=== PATIENT | male | born 1950 | race Caucasian/White ===

== ENCOUNTER 2016-12-22 11:25 | Inpatient (IN) ==
--- NOTE | 2016-12-22 14:05 | Podiatry History & Physical ---
History of Present Illness Chief complaint: Foot ulcer with cellulitis HPI: Mr. Akbar is a 66 year old male, known diabetic with long history of anticoagulant therapy for history of DVT/ PE . Patient with multiple bilateral PE approximately 5 years ago was admitted to [facility] and was told at that time he will need to take anticoagulant therapy for the remainder of his life. He presents with a diabetic foot ulcer which is chronic came acute over the last 5-7 days. Patient recently lost his mother on December 11. He lost his [id number] in July of this year. Patient's been under great deal of stress. noticed ulceration last 24 hours where he presented to [facility] ED was placed on clindamycin and returned home. Patient has had malaise fatigue chills over the last 24-48 hours. He presents today with significant edema and cellulitis of his right foot with a penetrating ulceration on the plantar aspect with a sinus tract approximately 3 cm from the center of the wound distally toward the great toe at the 6 clock position. There is no foul odor there is a seropurulent drainage. Patient will likely need to be incised and drained and debrided accordingly once he is medically optimized and we can bridge him off his Coumadin onto Lovenox per recommendations of internal medicine/hospitalist service. I have consulted infectious disease for management of this infection. He will be evaluated for possible osteomyelitis. Present x-rays do not reveal any active osteo. All Systems Reviewed: A 10-system review of systems was performed and is negative for pertinent findings except as documented above in the HPI. Past Med Surg Social Fam HX - Past Medical History Medical history: cancer, DVT, diabetes, hyperlipidemia, hypertension, renal disease, thyroid disease Psychiatric history: depression - Social History Smoking Status: Never smoker Smokeless Tobacco Status: No Alcohol use: none Drug use: none Medications and Allergies Amlodipine Besylate 10 mg PO DAILY 12/21/16 [History] Atenolol 100 mg PO DAILY 12/21/16 [History] Cholecalciferol (Vitamin D3) [Vitamin D] 2,000 unit PO DAILY 12/21/16 [History] Clindamycin HCl 300 mg PO Q6H #40 capsule 12/21/16 [Rx] Gabapentin [Neurontin] 400 mg PO TID 12/21/16 [History] Insulin Glargine,Hum.rec.anlog [Lantus Solostar] 30 unit SQ HS 12/21/16 [History ] Insulin LISPRO [Humalog Kwikpen U-100] 14 unit SQ TID 12/21/16 [History] Levothyroxine Sodium [Tirosint] 100 mcg PO QAM 12/21/16 [History] Lovastatin [Mevacor] 20 mg PO HS 12/21/16 [History] OxyCODONE/APAP 10/325 [Percocet 10/325 MG] 1 tab PO BID PRN 12/21/16 [History] Tizanidine HCl [Zanaflex] 4 mg PO TID 12/21/16 [History] Warfarin Sodium 5 mg PO SUTUTHSA 12/21/16 [History] hydroCHLOROthiazide [Hydrochlorothiazide] 25 mg PO DAILY 12/21/16 [History] Warfarin [Coumadin] 2.5 mg PO MOWEFR 12/22/16 [History] Allergies Penicillins Allergy (Verified 12/21/16 22:04) Hives Physical Exam - Constitutional Vitals: Temp Pulse Resp BP Pulse Ox 98.1 F 62 14 132/67 99 12/22/16 12:51 12/22/16 12:51 12/22/16 12:51 12/22/16 12:51 12/22/16 12:51 General appearance: average body habitus, cooperative - Expanded Lower Extremities Exam Foot/Toe exam: Present: deformity (Musculoskeletal: 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 DTRs Achilles and patellar equal and symmetrical 0/4. Babinski is absent clonus is negative. No spasticity no rigidity no flaccidity of either lower extremity.) Gait: Present: antalgic - Skin Additional comments: I observed an ulceration approximately 1 cm in length and 0.7 cm in width and 0.8 cm in depth with sinus tract at least 3 cm emanating from the center of the wound distally toward the great toe plantar aspect of the first MTPJ right foot. We see surrounding and ascending cellulitis with lymphangitis no odor no active purulent spontaneous drainage. There is serous and was drainage within the wound itself. Results - Labs Labs: All other labs normal. - Diagnostic results Ankle/Foot x-ray: image reviewed (MRI pending) Assessment and Plan (1) Foot ulcer with fat layer exposed Current visit: Yes Status: Acute Assessment: #1 diabetic foot ulcer with sinus tract plantar right foot first MTPJ with associated spreading cellulitis of the right foot #2 diabetes with neuropathy #3 anticoagulant status #4 history of multiple PEs Plan: #1 admit for intravenous antibiotics per infectious disease service #2 likely will need a formal incision and drainage and debridement of all necrotic tissue placement of wound VAC once patient is medically optimized and bridged from Coumadin to anticoagulants per medicine service #3 request consultation from hospitalist service for management of diabetes and anticoagulation Qualifiers: Laterality: right Qualified Code(s): L97.512 - Non-pressure chronic ulcer of other part of right foot with fat layer exposed
--- NOTE | 2016-12-22 14:21 | Infectious Disease Consult ---
Date of Encounter: 12/22/16 Time of Encounter: 14:20 Assessment and Plan (1) Diabetic foot ulcer Status: Acute Assessment and plan: Edema of his right foot with a penetrating ulceration on the plantar aspect with a sinus tract approximately 3 cm from the center of the wound distally toward the great toe. Surrounding erythema, no proximal streaking, no foul odor , minimal purulent drainage on dressing. Possible ostemyelitis with elevated CRP 155, ESR 41. Since admission he has not met SIRS criteria. X-ray of the right foot revealed chronic deformity of the first and second toes , with no radiographic evidence of osteomyelitis. MRI right foot is pending. Blood cultures were collected 12/31/16 and are pending. Wound cultures are ordered. Recommendations: Patient will need incision and debridement per podiatry. Need to obtain deep wound cultures. Will hold antibiotics at this time and await deep wound cultures. Patient is at very high risk for developing KENNETH with vancomycin administration given CKD stage III and current Cr 2.60 He currently does not meet sepsis criteria. If patient develops a Temp > 100.9F , Heart rate > 90, Respiratory rate > 20, or WBC > 12,000, will start Vancomycin and Cefepime. Will continue to monitor closely. Qualifiers: Diabetic foot ulcer location: toe Diabetes mellitus type: type 2 Laterality: right Non-pressure ulcer stage: with fat layer exposed Qualified Code(s): E11.621 - Type 2 diabetes mellitus with foot ulcer; L97.512 - Non-pressure chronic ulcer of other part of right foot with fat layer exposed (2) CKD (chronic kidney disease) stage 3, GFR 30-59 ml/min Status: Acute Assessment and plan: Recommend IV hydration. Avoid nephrotoxins. (3) Insulin dependent diabetes mellitus Status: Acute Assessment and plan: Management per internal medicine team (4) History of pulmonary embolism Status: Acute Assessment and plan: Hold Coumadin at this time. Patient may need I&D of right foot ulcer if condition worsens Infectious Disease HPI - Data of Consult Requesting Physician: Niels Castro, Primary Care Provider: Richard Driver MD - Consult Narrative Reason for consult: Diabetic foot ulcer History of present illness: Mr. Akbar is a 66 year old male that was admitted on 12/22/16 for right diabetic foot ulcer. Infectious disease is consulted on 12/22/16 for right diabetic foot ulcer Mr. Akbar is a 66 year old male with a PMH significant for diabetes, peripheral neuropathy, pulmonary embolism currently on Coumadin, and CKD stage III who was evaluated at [facility] ER last night due to chills, and rigors. He reported noticing a ulcer on the base of his right great toe 5 days ago that gradually became red and swollen. Labs revealed WBC 11.4, CRP 155 , ESR 41, BUN 32, creatinine 2.79, and glucose 286. Patient was instructed to follow up with Dr. Castro. Patient was subsequently admitted for planned incision and drainage after evalauted by Dr. Castro this AM. Since admission he has not met SIRS criteria. X-ray of the right foot revealed chronic deformity of the first and second toes , with no radiographic evidence of osteomyelitis. MRI right foot is pending. Blood cultures were collected 12/31/16 and are pending. Wound cultures are ordered. Other consultants include internal medicine for inpatient management of diabetes. Today the patient complains of redness, swelling, and denies pain at this time. CC: Niels Castro, Past Med Surg Social Fam HX - Past Medical History Medical history: cancer (Melanoma on back), DVT, diabetes, hyperlipidemia, hypertension, renal disease (CTD stage III), thyroid disease (Hyperthyroidism) Psychiatric history: depression - Past Surgical History Surgical History: other (Right foot I&D Melanoma resection from back) - Social History Smoking Status: Never smoker Smokeless Tobacco Status: No Alcohol use: none Drug use: none - Family History Mother Living Status: Hx Family Cardiac Disorders: Yes Father Living Status: Hx Family Cardiac Disorders: Yes Hx Family Endocrine Disorder: Yes (diabetes) Infectious Disease-CN:Meds Amlodipine Besylate 10 mg PO DAILY 12/21/16 [History] Atenolol 100 mg PO DAILY 12/21/16 [History] Cholecalciferol (Vitamin D3) [Vitamin D] 2,000 unit PO DAILY 12/21/16 [History] Clindamycin HCl 300 mg PO Q6H #40 capsule 12/21/16 [Rx] Gabapentin [Neurontin] 400 mg PO TID 12/21/16 [History] Insulin Glargine,Hum.rec.anlog [Lantus Solostar] 30 unit SQ HS 12/21/16 [History ] Insulin LISPRO [Humalog Kwikpen U-100] 14 unit SQ TID 12/21/16 [History] Levothyroxine Sodium [Tirosint] 100 mcg PO QAM 12/21/16 [History] Lovastatin [Mevacor] 20 mg PO HS 12/21/16 [History] OxyCODONE/APAP 10/325 [Percocet 10/325 MG] 1 tab PO BID PRN 12/21/16 [History] Tizanidine HCl [Zanaflex] 4 mg PO TID 12/21/16 [History] Warfarin Sodium 5 mg PO SUTUTHSA 12/21/16 [History] hydroCHLOROthiazide [Hydrochlorothiazide] 25 mg PO DAILY 12/21/16 [History] Warfarin [Coumadin] 2.5 mg PO MOWEFR 12/22/16 [History] Allergies Penicillins Allergy (Verified 12/21/16 22:04) Hives Review of systems: Travel: denies recent travel Animal exposure: Patient has dog at home but denies dog bite Sick contacts: Denies. Diet: denies ingestion of undercooked or raw meats. Dental: denies recent dental procedures - Constitutional Constitutional: Present: chills, fever(s). Absent: fatigue, weakness, weight gain, weight loss - EENT Eyes: Absent: change in vision Nose, mouth and throat: Absent: nasal congestion - Cardiovascular Cardiovascular: Present: pedal edema (Right lower extremity). Absent: chest pain, palpitations, rapid heart rate - Respiratory Respiratory: Absent: cough, chest congestion, excessive phlegm production - Gastrointestinal Gastrointestinal: Absent: abdominal pain, bloating, diarrhea, nausea, vomiting - Genitourinary Additional comments: Denies dysuria, frequency/urgency - Musculoskeletal Musculoskeletal: Present: limited range of motion (Right foot), numbness - Integumentary Integumentary: Present: erythema, lesions, skin ulcer, swelling, wounds. Absent : change in hair, change in nails - Neurological Neurological: Present: numbness, paresthesias. Absent: confusion, weakness - Endocrine Endocrine: Absent: cold intolerance, heat intolerance, palpitations, polydipsia , polyphagia, polyuria - Hematologic/Lymphatic Hematologic/Lymphatic: Absent: easy bleeding, lymphadenopathy Exam - Constitutional Vitals: Temp Pulse Resp BP Pulse Ox 98.1 F 62 14 132/67 99 12/22/16 12:51 12/22/16 12:51 12/22/16 12:51 12/22/16 12:51 12/22/16 12:51 General appearance: average body habitus, cooperative, no acute distress, no febrile - Head Head exam: Present: atraumatic, normal inspection, normocephalic - Eye Eye exam: Present: PERRL, conjuntiva pink - ENT ENT exam: Present: mucous membranes moist, normal oropharynx - Neck Neck exam: Present: lymphadenopathy, normal inspection. Absent: meningismus, tenderness, thyromegaly - Respiratory Respiratory exam: Present: CTAB. Absent: decreased breath sounds, rhonchi, wheezes - Cardiovascular Cardiovascular exam: Present: RRR, +S1, +S2. Absent: diastolic murmur, systolic murmur - GI/Abdominal GI/Abdominal exam: Present: normal bowel sounds, soft. Absent: distended, guarding, rebound, rigid, tenderness - Extremities Exam Extremities exam: Present: full ROM. Absent: pedal edema, tenderness Additional comments: Edema of his right foot with a penetrating ulceration on the plantar aspect with a sinus tract approximately 3 cm from the center of the wound distally toward the great toe. Surrounding erythema, no proximal streaking, no foul odor , minimal purulent drainage on dressing. - Neurological Exam Neurological exam: Present: alert, oriented X3. Absent: altered Additional comments: decreased sensation bilateral lower extremities - Skin Additional comments: Edema of his right foot with a penetrating ulceration on the plantar aspect with a sinus tract approximately 3 cm from the center of the wound distally toward the great toe. Surrounding erythema, no proximal streaking, no foul odor , minimal purulent drainage on dressing. Infectious Disease CN: Results - Labs CBC & Chem 7: 12/23/16 05:38 12/23/16 05:38 Consult Discharge Plan - Plan Referrals: Richard Driver MD [Primary Care Provider] - - Attending Attestation I examined this patient and my medical decision-making was reviewed with the Resident Physician. I agree with the documented findings, disposition and treatment plan as described except to the extent set forth below. This is an addendum to original report dictated by resident physician. Please refer to the residents note for full details. Patient is a 66-year-old gentleman who has extensive past medical history including diabetes mellitus with diabetic nephropathy stage III and history of bilateral PEs in the past about 6 years ago has been having this diabetic foot ulcer on the right side for quite some time. Patient was evaluated by Dr. Castro noted to the infection is deep and did some deep tissue cultures in the office and send the patient for admission and possible starting IV antibiotics. Patient also has an MRI ordered, blood cultures and routine labs. Patients labs reveal ESR in the 40s and a CRP in the 150 range. Rest of the workup is still pending. Currently patient has no surgical criteria and appears comfortable. The wound doesnt appear deep but there is no lesli pus coming out and is not foul-smelling. Patient was started on broad-spectrum antibiotics. I will hold all antibiotics to see what the MRI shows and if there is a concern for osteomyelitis versus other. Also to improve the yield of cultures if the patient that having his surgery. Meanwhile I will monitor closely if clinically patient changes well start empiric vancomycin and cefepime. Await MRI results, we will cultures, await wound cultures.
[2016-12-22 15:21] LABS: Basophils % 0.3 %; Eosinophils # 0.4 K/mcL (0.0-0.6); Eosinophils % 3.6 %; Hemoglobin 11.7 g/dL (12.9-16.9); Immature Granulocytes % 0.3 % (0-4); Lymphocytes # 1.3 K/mcL (0.6-4.6); Lymphocytes % 12.5 %; Mean Corpuscular HGB Conc 33.4 g/dL (31.6-35.5); Mean Corpuscular Hemoglobin 28.2 pg (28.0-33.3); Mean Corpuscular Volume 84.3 fL (83.0-100.0); Mean Platelet Volume 11.5 fL (9.4-12.4); Monocytes # 0.7 K/mcL (0.0-1.3); Monocytes % 7.2 %; Neutrophils # 7.8 K/mcL (1.6-8.9); Platelet Count 156 K/mcL (140-400); Red Blood Count 4.15 M/mcL (4.19-5.50); Red Cell Distribution Width 12.9 % (11.5-14.5); Segmented Neutrophils % 76.1 %
[2016-12-22] MEDS ORDERED: D5% in Water 1,000 ML IVC PRN (15:25)
[2016-12-22] MEDS ORDERED: *HR* Dextrose 50 % in Water (Syg) 50 ML SYRINGE IVP PRN (15:25)
[2016-12-22] MEDS ORDERED: Dextrose Gel 15 GM PO PRN ×2 (15:25)
[2016-12-22] MEDS ORDERED: *HR* OxyCODONE/APAP 10/325 TABLET PO PRN (15:27)
[2016-12-22] MEDS ORDERED: *HR* Heparin 5,000 UNIT/ML VIAL IVP PRN ×2 (15:29)
--- NOTE | 2016-12-22 15:33 | Internal Medicine Consult Note ---
Date of Encounter: 12/22/16 Time of Encounter: 15:33 - Assessment and Plan (1) Diabetic foot ulcer Current Visit: Yes Status: Acute Assessment and plan: Patient admitted for planned I&D of diabetic foot ulcer and IV antibiotics for cellulitis. Management per infectious disease and orthopedic surgery. Qualifiers: Diabetic foot ulcer location: toe Diabetes mellitus type: type 2 Laterality: right Non-pressure ulcer stage: with fat layer exposed Qualified Code(s): E11.621 - Type 2 diabetes mellitus with foot ulcer; L97.512 - Non-pressure chronic ulcer of other part of right foot with fat layer exposed (2) Acute kidney injury superimposed on chronic kidney disease Current Visit: Yes Status: Acute Assessment and plan: Patient's BUN and creatinine elevated to 32 and 2.79, respectively. Creatinine is above previous baseline of ~ 2.2. Patient reporting poor appetite, and this is likely secondary to infection and poor oral intake. Will hold HCTZ and gently hydrate with 0.9NS at 100mL/hr, check chemistry daily. Will also get a UA. (3) Hypertension Current Visit: Yes Status: Acute Assessment and plan: Blood pressure has been controlled since arrival. Continue home dose of atenolol and amlodipine. Holding HCTZ due to KENNETH. Continue to monitor. Qualifiers: Hypertension type: essential hypertension Qualified Code(s): I10 - Essential (primary) hypertension (4) Anticoagulated on Coumadin Current Visit: Yes Status: Acute Assessment and plan: Patient is on coumadin for history of saddle embolus. Stat PT/INR/PTT ordered. Will hold coumadin in anticipation of surgery on . Heparin drip initiated to bridge anticoagulation. Check PT/INR/PTT per protocol. Will stop prior to surgery and plan to bridge back to coumadin after surgery. (5) Hypothyroid Current Visit: Yes Status: Acute Assessment and plan: Continue home dose of Synthroid. Qualifiers: Hypothyroidism type: unspecified Qualified Code(s): E03.9 - Hypothyroidism , unspecified (6) History of pulmonary embolism Current Visit: Yes Status: Acute Assessment and plan: Patient reports history of saddle pulmonary embolus 5 years ago. He is on lifelong anticoagulation with coumadin and follows with the anti-coagulation clinic here. We are holding coumadin in anticiaption of surgery and will bridge with heparin. Patient denies any chest pain, palpitations or shortness of breath. (7) Type 2 diabetes mellitus Current Visit: Yes Status: Acute Assessment and plan: Check Hgb A1c Diabetic diet Basal dose of insulin 26u HS (patient takes 30u HS at home) short acting insulin 8u TID with meals plus medium dose sliding scale correction ACHS. (patient takes 14u TID at home) hypoglycemic protocol. 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 Patient on heparin drip. Internal Medicine - CN: HPI - Data of Consult Patient: new to practice Consult date: 12/22/16 Requesting Physician: Niels Castro, - Consult Narrative Reason for consult: medical management of diabetes, anticoagulation History of present illness: Mr. Akbar is a 66 year old male with hypertension, hyperlipidemia, hypothyroid, chronic kidney disease stage III, type 2 diabetes, history of DVT and PE on Coumadin, chronic low back pain and right foot diabetic foot ulcer who was admitted for planned incision and drainage of the diabetic foot ulcer by Dr. Castro. We have been consulted for medical management of his diabetes and anticoagulation. Patient reports that he started having fevers, chills, poor appetite yesterday and decided to take a look at his chronic diabetic ulcer on his right foot, it looked worse, with swelling, redness. He presented to [place] ED yesterday, and was instructed to follow-up with Dr. Castro today. He did see Dr. Castro in an appointment this morning and was subsequently admitted for planned incision and drainage. Patient denies any chest pain, palpitations , shortness of breath. He denies any nausea, vomiting. Labs from yesterday indicate patient has KENNETH on his CKD with a creatinine of 2.79, BUN of 32. Patient's Coumadin will be need to be stopped and he will be bridged with heparin until his procedure planned for . On exam, patient alert and oriented, in no acute distress. Lungs are clear bilaterally to auscultation, heart had regular rate and rhythm. Nontender positive bowel sounds in all 4 quadrants. Right lower extremity with edema, erythema, and 1 cm x 1 cm ulcer to his medial plantar aspect just proximal to the great toe. Past Med Surg Social Fam HX - Past Medical History Medical history: cancer (Melanoma on back), DVT, diabetes, hyperlipidemia, hypertension, renal disease (CTD stage III), thyroid disease (Hyperthyroidism) Psychiatric history: depression - Past Surgical History Surgical History: other (Right foot I&D Melanoma resection from back) - Social History Smoking Status: Never smoker Smokeless Tobacco Status: No Alcohol use: none Drug use: none - Family History Mother Living Status: Hx Family Cardiac Disorders: Yes Father Living Status: Hx Family Cardiac Disorders: Yes Hx Family Endocrine Disorder: Yes (diabetes) - Constitutional Constitutional: anorexia, chills, fever(s) - EENT Eyes: no blurry vision, no change in vision - Cardiovascular Cardiovascular ROS IM: no chest pain, no dyspnea, no dyspnea on exertion, no lightheadedness, no palpitations - Respiratory Respiratory: no cough, no dyspnea, no excessive phlegm production - Gastrointestinal Gastrointestinal: no abdominal pain, no diarrhea, no nausea, no vomiting - Genitourinary Genitourinary ROS male: no dysuria - Musculoskeletal Musculoskeletal ROS IM: back pain (chronic), joint swelling (right foot), numbness (chronic BLE), tingling (chronic BLE) - Integumentary Integumentary IM: erythema (right foot), non-healing lesions (right plantar foot ) - Neurological Neurological ROS: no confusion, no dizziness Internal Medicine - CN: Meds Amlodipine Besylate 10 mg PO DAILY 12/21/16 [History] Atenolol 100 mg PO DAILY 12/21/16 [History] Cholecalciferol (Vitamin D3) [Vitamin D] 2,000 unit PO DAILY 12/21/16 [History] Clindamycin HCl 300 mg PO Q6H #40 capsule 12/21/16 [Rx] Gabapentin [Neurontin] 400 mg PO TID 12/21/16 [History] Insulin Glargine,Hum.rec.anlog [Lantus Solostar] 30 unit SQ HS 12/21/16 [History ] Insulin LISPRO [Humalog Kwikpen U-100] 14 unit SQ TID 12/21/16 [History] Levothyroxine Sodium [Tirosint] 100 mcg PO QAM 12/21/16 [History] Lovastatin [Mevacor] 20 mg PO HS 12/21/16 [History] OxyCODONE/APAP 10/325 [Percocet 10/325 MG] 1 tab PO BID PRN 12/21/16 [History] Tizanidine HCl [Zanaflex] 4 mg PO TID 12/21/16 [History] Warfarin Sodium 5 mg PO SUTUTHSA 12/21/16 [History] hydroCHLOROthiazide [Hydrochlorothiazide] 25 mg PO DAILY 12/21/16 [History] Warfarin [Coumadin] 2.5 mg PO MOWEFR 12/22/16 [History] Allergies Penicillins Allergy (Verified 12/21/16 22:04) Hives Internal Medicine - CN: Exam - Constitutional Vitals: Temp Pulse Resp BP Pulse Ox 98.1 F 62 14 132/67 99 12/22/16 12:51 12/22/16 12:51 12/22/16 12:51 12/22/16 12:51 12/22/16 12:51 General appearance IM: Present: A&O X 3, pleasant, no acute distress - Head Head exam: Present: atraumatic, normocephalic - Eye Eye exam: Present: PERRL, conjuntiva pink, sclera anicteric - Neck Neck exam general surgery: Present: full ROM, supple, trachea midline - Respiratory Respiratory exam: Present: CTAB. Absent: accessory muscle use, rales, rhonchi, wheezes - Cardiovascular Cardiovascular exam IM: Present: RRR, +S1, +S2. Absent: bradycardia, irregular rhythm, tachycardia - GI/Abdominal GI/Abdominal exam IM: Present: normal bowel sounds, soft, no peritoneal signs. Absent: tenderness - Extremities Exam Additional comments: 1cm x 1cm ulcer at plantar aspect of proximal metatarsal on right foot. surrounding erythema and edema. - Neurological Exam Neurological exam: Present: oriented X3. Absent: facial droop, speech deficit Internal Medicine - CN: Reslt - Labs CBC & Chem 7: 12/22/16 13:03 12/22/16 15:00 Labs: Short CBC 12/22/16 Range/Units 13:03 WBC 10.2 (4.3-11.1) K/mcL Hgb 11.7 L (12.9-16.9) g/dL Hct 35.0 L (37.5-50.1) % Plt Count 156 (140-400) K/mcL Neutrophils # 7.8 (1.6-8.9) K/mcL Consult Discharge Plan - Plan Referrals: Richard Driver MD [Primary Care Provider] -
[2016-12-22 15:34] LABS: Calcium 8.3 mg/dL (8.6-10.8)
[2016-12-22] MEDS ORDERED: Vancomycin 1,500 MG in D5% in Water 250 ML IVPB SCH ×2 (16:00→17:00)
[2016-12-22] MEDS ORDERED: Cefepime HCl 2,000 MG in D5% in Water (Mini-Bag+) 100 ML IVPB SCH (16:00)
[2016-12-22 16:23] LABS: Hematocrit 31.9 % (37.5-50.1); Hemoglobin 10.9 g/dL (12.9-16.9); Immature Platelets 8.4 % (1.1-6.1); Mean Corpuscular HGB Conc 34.2 g/dL (31.6-35.5); Mean Corpuscular Hemoglobin 28.8 pg (28.0-33.3); Mean Corpuscular Volume 84.4 fL (83.0-100.0); Mean Platelet Volume 11.8 fL (9.4-12.4); Red Blood Count 3.78 M/mcL (4.19-5.50)
[2016-12-22 16:28] LABS: INR 2.2; Prothrombin Time 24.8 Seconds (9.4-12.1)
[2016-12-22 16:31] LABS: Activated Partial Thrombo Time 33.6 Seconds (26.0-36.0)
[2016-12-22 17:02] LABS: Hemoglobin A1C 6.6 %
[2016-12-22] MEDS: 0.9 % Sodium Chloride 1,000 ML IVC SCH (17:17)
[2016-12-22] MEDS: Heparin 25,000 UNIT/500 ML D5W 25,000 UNIT/500 ML MLS IVC SCH (17:19)
[2016-12-22] MEDS: Insulin LISPRO 300 UNITS/3 ML VIAL SQ SCH ×3 (17:28→20:22)
[2016-12-22 18:53] LABS: Bilirubin,Urine Negative (Negative); Blood,Urine Negative (Negative); Clarity,Urine Clear (Clear); Color,Urine Yellow (Yellow); Glucose,Urine (UA) Normal (Normal); Ketones,Urine Negative (Negative); Leukocyte Esterase,Urine Negative (Negative); Nitrite,Urine Negative (Negative); Protein,Urine 30 mg/dL (Neg-Trace); Urobilinogen,Urine Normal (Normal)
[2016-12-22 18:57] LABS: Bacteria,Urine None Seen per hpf (None-Few); Hyaline Casts,Urine None Seen per lpf (None-Few); RBC,Urine 0-3 per hpf (0-3); Squamous Epithelial Cell,Urine Few per lpf (None-Few); WBC,Urine 0-3 per hpf (0-3)
[2016-12-22] MEDS: Gabapentin 400 MG CAPSULE PO SCH (20:54)
[2016-12-22] MEDS: tiZANidine 4 MG TABLET PO SCH (20:55)
[2016-12-22] MEDS: Insulin DETEMIR 100 UNIT/ML X5UNITS SQ SCH (21:23)
[2016-12-23] MEDS: 0.9 % Sodium Chloride 1,000 ML IVC SCH (03:34)
[2016-12-23 05:53] LABS: INR 2.1; Prothrombin Time 22.9 Seconds (9.4-12.1)
[2016-12-23 05:54] LABS: Basophils % 0.5 %; Eosinophils # 0.4 K/mcL (0.0-0.6); Eosinophils % 5.8 %; Hematocrit 31.9 % (37.5-50.1); Hemoglobin 11.1 g/dL (12.9-16.9); Immature Granulocytes % 0.5 % (0-4); Lymphocytes # 1.6 K/mcL (0.6-4.6); Lymphocytes % 20.7 %; Mean Corpuscular HGB Conc 34.8 g/dL (31.6-35.5); Mean Corpuscular Hemoglobin 29.1 pg (28.0-33.3); Mean Corpuscular Volume 83.5 fL (83.0-100.0); Mean Platelet Volume 11.7 fL (9.4-12.4); Monocytes # 0.5 K/mcL (0.0-1.3); Neutrophils # 4.9 K/mcL (1.6-8.9); Platelet Count 152 K/mcL (140-400); Red Blood Count 3.82 M/mcL (4.19-5.50); Red Cell Distribution Width 12.8 % (11.5-14.5); Segmented Neutrophils % 65.5 %
[2016-12-23 06:03] LABS: Calcium 7.9 mg/dL (8.6-10.8); Potassium 3.7 mEq/L (3.5-4.5)
[2016-12-23] MEDS: Cholecalciferol (D-3) 1,000 UNIT TABLET PO SCH (07:39)
[2016-12-23] MEDS: amLODIPine 5 MG TABLET PO SCH (07:39)
[2016-12-23] MEDS: Gabapentin 400 MG CAPSULE PO SCH ×3 (07:39→21:12)
[2016-12-23] MEDS: tiZANidine 4 MG TABLET PO SCH ×3 (07:39→21:11)
[2016-12-23] MEDS: Insulin LISPRO 300 UNITS/3 ML VIAL SQ SCH ×7 (07:40→21:12)
--- NOTE | 2016-12-23 08:17 | Infectious Disease Progress No ---
Date of Encounter: 12/23/16 Time of Encounter: 08:17 - Assessment and Plan (1) Diabetic foot ulcer Current Visit: Yes Status: Acute Edema of his right foot with a penetrating ulceration on the plantar aspect with a sinus tract approximately 3 cm from the center of the wound distally toward the great toe. Surrounding erythema, no proximal streaking, no foul odor , minimal purulent drainage on dressing. Elevated CRP 155, ESR 41. X-ray of the right foot revealed chronic deformity of the first and second toes , with no radiographic evidence of osteomyelitis. MRI right foot reveals chronic bony changes at the 1st and 2nd toes and evidence of cellulitis at the 1st metatarsophalangeal joint, with ulceration along the plantar aspect of foot. No focal fluid collections are found. No MR evidence of osteomyelitis. Blood cultures were collected 12/21/16 and show no growth to date Wound cultures collected 12/22/16 pending. Gram stain of right foot ulcer reveals moderate gram-positive cocci and many gram-negative rods. Recommendations: Patient will need incision and debridement per podiatry. Need to obtain deep wound cultures. Will hold antibiotics at this time and await deep wound cultures. Patient is at very high risk for developing KENNETH with vancomycin administration given CKD stage III and current creatinine elevation He does not meet sepsis criteria at this time. If patient develops a Temp > 100.9F, Heart rate > 90, Respiratory rate > 20, or WBC > 12,000, will start Vancomycin and Cefepime. Will continue to monitor closely. Qualifiers: Diabetic foot ulcer location: toe Diabetes mellitus type: type 2 Laterality: right Non-pressure ulcer stage: with fat layer exposed Qualified Code(s): E11.621 - Type 2 diabetes mellitus with foot ulcer; L97.512 - Non-pressure chronic ulcer of other part of right foot with fat layer exposed (2) CKD (chronic kidney disease) stage 3, GFR 30-59 ml/min Current Visit: Yes Status: Acute Recommend IV hydration. Avoid nephrotoxins. (3) Insulin dependent diabetes mellitus Current Visit: Yes Status: Acute Management per internal medicine team (4) History of pulmonary embolism Current Visit: Yes Status: Acute Hold Coumadin at this time. Continue heparin drip. Patient may need I&D of right foot ulcer if condition worsens - Subjective Interval history: Patient seen and examined. Acute events overnight. H he denies increased purulent drainage from right diabetic foot ulcer. He denies fevers, chills, chest pain, shortness of breath, abdominal pain, nausea, vomiting, diarrhea, or worsening leg edema Infect Dis PN-Objective Data - Labs CBC & Chem 7: 12/23/16 05:38 12/23/16 05:38 Labs: Laboratory Results - last 24 hr 12/22/16 12/22/16 12/22/16 13:03 15:00 15:00 WBC 10.2 RBC 4.15 L Hgb 11.7 L Hct 35.0 L MCV 84.3 MCH 28.2 MCHC 33.4 RDW 12.9 Plt Count 156 MPV 11.5 Immature Gran % 0.3 Seg Neutrophils % 76.1 Lymphocytes % 12.5 Monocytes % 7.2 Eosinophils % 3.6 Basophils % 0.3 Neutrophils # 7.8 Lymphocytes # 1.3 Monocytes # 0.7 Eosinophils # 0.4 Basophils # 0.0 Immature Plt Fraction ESR 41 H PT INR APTT Sodium 133 L Potassium 4.0 Chloride 101 Carbon Dioxide 25 BUN 35 H Creatinine 2.60 H Est GFR ( Amer) 30 L Est GFR (Non-Af Amer) 25 L BUN/Creatinine Ratio 13 Glucose 226 H POC Glucose Est Mean Plasma Glucose Hemoglobin A1c Calculated Osmolality 291 Calcium 8.3 L C-Reactive Protein 155 H Urine Color Urine Clarity Urine pH Ur Specific [place] Urine Protein Urine Glucose (UA) Urine Ketones Urine Blood Urine Nitrite Urine Bilirubin Urine Urobilinogen Ur Leukocyte Esterase Urine Microscopic RBC Urine Microscopic WBC Ur Squamous Epith Cells Urine Bacteria Hyaline Casts Ur Culture Indicated? 12/22/16 12/22/16 12/22/16 15:43 15:57 15:57 WBC RBC Hgb Hct MCV MCH MCHC RDW Plt Count MPV Immature Gran % Seg Neutrophils % Lymphocytes % Monocytes % Eosinophils % Basophils % Neutrophils # Lymphocytes # Monocytes # Eosinophils # Basophils # Immature Plt Fraction ESR PT 24.8 H INR 2.2 APTT 33.6 Sodium Potassium Chloride Carbon Dioxide BUN Creatinine Est GFR ( Amer) Est GFR (Non-Af Amer) BUN/Creatinine Ratio Glucose POC Glucose 229 H Est Mean Plasma Glucose 143 Hemoglobin A1c 6.6 H Calculated Osmolality Calcium C-Reactive Protein Urine Color Urine Clarity Urine pH Ur Specific [place] Urine Protein Urine Glucose (UA) Urine Ketones Urine Blood Urine Nitrite Urine Bilirubin Urine Urobilinogen Ur Leukocyte Esterase Urine Microscopic RBC Urine Microscopic WBC Ur Squamous Epith Cells Urine Bacteria Hyaline Casts Ur Culture Indicated? 12/22/16 12/22/16 12/22/16 15:57 17:06 18:47 WBC 10.1 RBC 3.78 L Hgb 10.9 L Hct 31.9 L MCV 84.4 MCH 28.8 MCHC 34.2 RDW 13.0 Plt Count 153 MPV 11.8 Immature Gran % Seg Neutrophils % Lymphocytes % Monocytes % Eosinophils % Basophils % Neutrophils # Lymphocytes # Monocytes # Eosinophils # Basophils # Immature Plt Fraction 8.4 H ESR PT INR APTT Sodium Potassium Chloride Carbon Dioxide BUN Creatinine Est GFR ( Amer) Est GFR (Non-Af Amer) BUN/Creatinine Ratio Glucose POC Glucose 174 H Est Mean Plasma Glucose Hemoglobin A1c Calculated Osmolality Calcium C-Reactive Protein Urine Color Yellow Urine Clarity Clear Urine pH 6.0 Ur Specific [place] 1.020 Urine Protein 30 H Urine Glucose (UA) Normal Urine Ketones Negative Urine Blood Negative Urine Nitrite Negative Urine Bilirubin Negative Urine Urobilinogen Normal Ur Leukocyte Esterase Negative Urine Microscopic RBC 0-3 Urine Microscopic WBC 0-3 Ur Squamous Epith Cells Few Urine Bacteria None Seen Hyaline Casts None Seen Ur Culture Indicated? NO 12/22/16 12/22/16 12/23/16 20:13 22:28 05:38 WBC 7.6 RBC 3.82 L Hgb 11.1 L Hct 31.9 L MCV 83.5 MCH 29.1 MCHC 34.8 RDW 12.8 Plt Count 152 MPV 11.7 Immature Gran % 0.5 Seg Neutrophils % 65.5 Lymphocytes % 20.7 Monocytes % 7.0 Eosinophils % 5.8 Basophils % 0.5 Neutrophils # 4.9 Lymphocytes # 1.6 Monocytes # 0.5 Eosinophils # 0.4 Basophils # 0.0 Immature Plt Fraction ESR PT INR APTT 65.3 H D Sodium Potassium Chloride Carbon Dioxide BUN Creatinine Est GFR ( Amer) Est GFR (Non-Af Amer) BUN/Creatinine Ratio Glucose POC Glucose 107 H Est Mean Plasma Glucose Hemoglobin A1c Calculated Osmolality Calcium C-Reactive Protein Urine Color Urine Clarity Urine pH Ur Specific [place] Urine Protein Urine Glucose (UA) Urine Ketones Urine Blood Urine Nitrite Urine Bilirubin Urine Urobilinogen Ur Leukocyte Esterase Urine Microscopic RBC Urine Microscopic WBC Ur Squamous Epith Cells Urine Bacteria Hyaline Casts Ur Culture Indicated? 12/23/16 12/23/16 12/23/16 05:38 05:38 05:38 WBC RBC Hgb Hct MCV MCH MCHC RDW Plt Count MPV Immature Gran % Seg Neutrophils % Lymphocytes % Monocytes % Eosinophils % Basophils % Neutrophils # Lymphocytes # Monocytes # Eosinophils # Basophils # Immature Plt Fraction ESR PT 22.9 H INR 2.1 APTT 80.3 H Sodium 135 L Potassium 3.7 Chloride 103 Carbon Dioxide 24 BUN 33 H Creatinine 2.21 H Est GFR ( Amer) 37 L Est GFR (Non-Af Amer) 30 L BUN/Creatinine Ratio 15 Glucose 127 H POC Glucose Est Mean Plasma Glucose Hemoglobin A1c Calculated Osmolality 289 Calcium 7.9 L C-Reactive Protein Urine Color Urine Clarity Urine pH Ur Specific [place] Urine Protein Urine Glucose (UA) Urine Ketones Urine Blood Urine Nitrite Urine Bilirubin Urine Urobilinogen Ur Leukocyte Esterase Urine Microscopic RBC Urine Microscopic WBC Ur Squamous Epith Cells Urine Bacteria Hyaline Casts Ur Culture Indicated? Cultures: Serology 12/22/16 Range/Units 18:47 Urine Color Yellow (Yellow) Urine Clarity Clear (Clear) Urine pH 6.0 (5.0-8.0) pH Units Ur Specific [place] 1.020 (1.010-1.025) Urine Protein 30 H (Neg-Trace) mg/dL Urine Glucose (UA) Normal (Normal) mg/dL Urine Ketones Negative (Negative) mg/dL Urine Blood Negative (Negative) Urine Nitrite Negative (Negative) Urine Bilirubin Negative (Negative) Urine Urobilinogen Normal (Normal) mg/dL Ur Leukocyte Esterase Negative (Negative) Urine Microscopic RBC 0-3 (0-3) per hpf Urine Microscopic WBC 0-3 (0-3) per hpf Ur Squamous Epith Cells Few (None-Few) per lpf Urine Bacteria None Seen (None-Few) per hpf Hyaline Casts None Seen (None-Few) per lpf Ur Culture Indicated? NO (NO) - Impressions Impressions Foot MRI 12/22/16 13:56 IMPRESSION: 1. Chronic bony changes at the 1st and 2nd ray as described above. No MR evidence of osteomyelitis. 2. Evidence of cellulitis at the 1st metatarsophalangeal joint, with ulceration along the plantar aspect of foot. No focal fluid collections are found. D/ / Shay Alston MD / Shay Alston MD Interpreting Provider: Shay Alston MD Exam - Constitutional Vitals: Temp Pulse Resp BP Pulse Ox 98.4 F 63 16 127/73 98 12/23/16 06:46 12/23/16 06:46 12/23/16 06:46 12/23/16 06:46 12/23/16 06:46 General appearance: cooperative, no acute distress, no febrile - Head Head exam: Present: atraumatic, normal inspection, normocephalic - Eye Eye exam: Present: PERRL, conjuntiva pink - ENT ENT exam: Present: mucous membranes moist, normal oropharynx - Neck Neck exam: Present: normal inspection. Absent: lymphadenopathy, tenderness, thyromegaly - Respiratory Respiratory exam: Present: CTAB. Absent: rales, rhonchi - Cardiovascular Cardiovascular exam: Present: RRR, +S1, +S2 - GI/Abdominal GI/Abdominal exam: Present: normal bowel sounds, soft. Absent: firm, guarding, rebound, rigid - Extremities Exam Extremities exam: Present: pedal edema. Absent: tenderness Additional comments: Edema of his right foot with a penetrating ulceration on the plantar aspect with a sinus tract approximately 3 cm from the center of the wound distally toward the great toe. Surrounding erythema, no proximal streaking, no foul odor , minimal purulent drainage on dressing. - Neurological Exam Neurological exam: Present: alert, oriented X3. Absent: altered - Psychiatric Psychiatric exam: Present: normal affect, normal mood - Skin Additional comments: Edema of his right foot with a penetrating ulceration on the plantar aspect with a sinus tract approximately 3 cm from the center of the wound distally toward the great toe. Surrounding erythema, no proximal streaking, no foul odor , minimal purulent drainage on dressing. Consult Discharge Plan - Plan Referrals: Richard Driver MD [Primary Care Provider] - - Attending Attestation I examined this patient and my medical decision-making was reviewed with the Resident Physician. I agree with the documented findings, disposition and treatment plan as described except to the extent set forth below.
--- NOTE | 2016-12-23 09:50 | Internal Med Progress Note ---
<HersonhugoNewton - Last Filed: 12/23/16 13:34> Date of Encounter: 12/23/16 Time of Encounter: 09:50 - Assessment and plan (1) Diabetic foot ulcer Current Visit: Yes Status: Acute Assessment and plan: Patient has diabetic ulcer on Plantar surface of R foot with surrounding cellulitis. Plan for I&D tomorrow. IV abx per IDs recs Qualifiers: Diabetic foot ulcer location: toe Diabetes mellitus type: type 2 Laterality: right Non-pressure ulcer stage: with fat layer exposed Qualified Code(s): E11.621 - Type 2 diabetes mellitus with foot ulcer; L97.512 - Non-pressure chronic ulcer of other part of right foot with fat layer exposed (2) Type 2 diabetes mellitus Current Visit: Yes Status: Acute Assessment and plan: Hgb A1C 6.6 Glucose 127 this AM Continue Diabetic diet Continue Basal dose of insulin 26u HS Continue short acting insulin 8u TID with meals plus medium dose sliding scale correction ACHS. Continue hypoglycemic protocol. Continue to monitor Qualifiers: Diabetes mellitus complication status: with skin complications Diabetes mellitus complication detail: with foot ulcer Diabetes mellitus halfway insulin use: with halfway use Qualified Code(s): E11.621 - Type 2 diabetes mellitus with foot ulcer; L97.509 - Non-pressure chronic ulcer of other part of unspecified foot with unspecified severity; Z79.4 - custodial (current) use of insulin (3) Anticoagulated on Coumadin Current Visit: Yes Status: Acute Assessment and plan: Patient on halfway Coumadin due to Saddle PE. Holding Coumadin Bridging with Heparin ggt Monitor INR will hold heparin prior to surgery and will bridge back to coumadin after surgery (4) History of pulmonary embolism Current Visit: Yes Status: Acute Assessment and plan: Pt on terminal clerk coumadin due to Hx of PE. Continue anticoagulation management as per above. (5) Acute kidney injury superimposed on chronic kidney disease Current Visit: Yes Status: Acute Assessment and plan: Pt has hx of CKD stage III. Baseline Cr. 2.2 Pt had elevated Cr. 2.79 on admission. Pt was given IV hydration HCTZ held. Pt Cr. Back to baseline this morning 2.21 Continue to hold HCTZ as pt's BP is well controlled. (6) Hypertension Current Visit: Yes Status: Acute Assessment and plan: Well controlled. Continue atenolol and amlodipine. continue to hold HCTZ Qualifiers: Hypertension type: essential hypertension Qualified Code(s): I10 - Essential (primary) hypertension (7) Hypothyroid Current Visit: Yes Status: Acute Assessment and plan: Continue Synthroid Qualifiers: Hypothyroidism type: unspecified Qualified Code(s): E03.9 - Hypothyroidism , unspecified - Subjective Interval history: Patient reports no complaints at this time. He is resting comfortably. He does not have any pain in his foot. He denies Fever, Chills, Nausea, or vomiting. - Constitutional Vitals: Temp Pulse Resp BP Pulse Ox 98.4 F 63 16 127/73 98 12/23/16 06:46 12/23/16 06:46 12/23/16 06:46 12/23/16 06:46 12/23/16 06:46 General appearance: Present: A&O X 3, pleasant, no acute distress - Eye Eye exam: Present: sclera anicteric - ENT ENT exam: Present: mucous membranes moist - Respiratory Respiratory exam: Present: CTAB. Absent: rales, rhonchi, wheezes - Cardiovascular Cardiovascular exam: Present: RRR, +S1, +S2. Absent: gallop, rubs, systolic murmur - GI/Abdominal GI/Abdominal exam: Present: normal bowel sounds, soft. Absent: tenderness - Extremities Exam Additional comments: Swelling, erythema, warmth surrounding Ulcer on plantar surface of R foot at big toe MTP joint - Neurological Exam Neurological exam: Present: alert, oriented X3. Absent: speech deficit - Psychiatric Psychiatric exam: Present: normal affect, normal mood - Skin Skin exam: Present: erythema, warm (R Foot) Internal Medicine: Result - Labs CBC & Chem 7: 12/23/16 05:38 12/23/16 05:38 Labs: Short CBC 12/22/16 12/22/16 12/23/16 Range/Units 13:03 15:57 05:38 WBC 10.2 10.1 7.6 (4.3-11.1) K/mcL Hgb 11.7 L 10.9 L 11.1 L (12.9-16.9) g/dL Hct 35.0 L 31.9 L 31.9 L (37.5-50.1) % Plt Count 156 153 152 (140-400) K/mcL Neutrophils # 7.8 4.9 (1.6-8.9) K/mcL BMP 12/22/16 12/23/16 15:00 05:38 Sodium 133 L 135 L Potassium 4.0 3.7 Chloride 101 103 Carbon Dioxide 25 24 BUN 35 H 33 H Creatinine 2.60 H 2.21 H Glucose 226 H 127 H Calcium 8.3 L 7.9 L Urine 12/22/16 Range/Units 18:47 Urine Color Yellow (Yellow) Urine Clarity Clear (Clear) Urine pH 6.0 (5.0-8.0) pH Units Ur Specific [place] 1.020 (1.010-1.025) Urine Protein 30 H (Neg-Trace) mg/dL Urine Glucose (UA) Normal (Normal) mg/dL - ABG Interpretation ABG results: PT/INR, D-dimer PT 22.9 Seconds (9.4-12.1) H 12/23/16 05:38 - Impressions Impressions Foot MRI 12/22/16 13:56 IMPRESSION: 1. Chronic bony changes at the 1st and 2nd ray as described above. No MR evidence of osteomyelitis. 2. Evidence of cellulitis at the 1st metatarsophalangeal joint, with ulceration along the plantar aspect of foot. No focal fluid collections are found. D/ / Shay Alston MD / Shay Alston MD Interpreting Provider: Shay Alston MD Consult Discharge Plan - Plan Referrals: Richard Driver MD [Primary Care Provider] - <Fabricio Archuleta - Last Filed: 12/23/16 18:37> Date of Encounter: 12/23/16 - Assessment and plan (1) Type 2 diabetes mellitus Current Visit: Yes Status: Acute Qualifiers: Diabetes mellitus complication status: with skin complications Diabetes mellitus complication detail: with foot ulcer Diabetes mellitus terminal clerk insulin use: with halfway use Qualified Code(s): E11.621 - Type 2 diabetes mellitus with foot ulcer; L97.509 - Non-pressure chronic ulcer of other part of unspecified foot with unspecified severity; Z79.4 - terminal clerk (current) use of insulin (2) Anticoagulated on Coumadin Current Visit: Yes Status: Acute (3) History of pulmonary embolism Current Visit: Yes Status: Acute (4) Hypertension Current Visit: Yes Status: Acute Qualifiers: Hypertension type: essential hypertension Qualified Code(s): I10 - Essential (primary) hypertension (5) Hypothyroid Current Visit: Yes Status: Acute Qualifiers: Hypothyroidism type: unspecified Qualified Code(s): E03.9 - Hypothyroidism , unspecified (6) Diabetic foot ulcer Current Visit: Yes Status: Acute Qualifiers: Diabetic foot ulcer location: toe Diabetes mellitus type: type 2 Laterality: right Non-pressure ulcer stage: with fat layer exposed Qualified Code(s): E11.621 - Type 2 diabetes mellitus with foot ulcer; L97.512 - Non-pressure chronic ulcer of other part of right foot with fat layer exposed - Constitutional Vitals: Temp Pulse Resp BP Pulse Ox 98.5 F 64 16 119/67 98 12/23/16 15:11 12/23/16 15:11 12/23/16 15:11 12/23/16 15:11 12/23/16 15:11 Internal Medicine: Result - Labs CBC & Chem 7: 12/23/16 05:38 12/23/16 05:38 Labs: Short CBC 12/23/16 Range/Units 05:38 WBC 7.6 (4.3-11.1) K/mcL Hgb 11.1 L (12.9-16.9) g/dL Hct 31.9 L (37.5-50.1) % Plt Count 152 (140-400) K/mcL Neutrophils # 4.9 (1.6-8.9) K/mcL BMP 12/23/16 05:38 Sodium 135 L Potassium 3.7 Chloride 103 Carbon Dioxide 24 BUN 33 H Creatinine 2.21 H Glucose 127 H Calcium 7.9 L Urine 12/22/16 Range/Units 18:47 Urine Color Yellow (Yellow) Urine Clarity Clear (Clear) Urine pH 6.0 (5.0-8.0) pH Units Ur Specific [place] 1.020 (1.010-1.025) Urine Protein 30 H (Neg-Trace) mg/dL Urine Glucose (UA) Normal (Normal) mg/dL - ABG Interpretation ABG results: PT/INR, D-dimer PT 22.9 Seconds (9.4-12.1) H 12/23/16 05:38 - Attending Attestation I examined this patient and my medical decision-making was reviewed with the Resident Physician on 12/23/16. I agree with the documented findings, disposition and treatment plan as described except to the extent set forth below. Mr. Akbar is currently admitted for diabetic foot ulcer. We are managing diabetes and anticoagulation. He remains moderate to high risk due to potential for bleeding, infection and blood sugar issues. Mr. Akbar is doing OK. He is to have surgery tomorrow. He is on heparin at this time. Blood sugars are fair. Exam Alert. Comfortable Mucus membranes moist Heart reg No wheeze Dressing intact I/P 1. DM 2. PE history on coumadin 2. Diabetic foot ulcer Further diagnoses and plan as above.
--- NOTE | 2016-12-23 10:59 | Podiatry Progress Note ---
Date of Encounter: 12/23/16 Time of Encounter: 10:56 - Assessment and Plan (1) Foot ulcer with fat layer exposed Current Visit: Yes Status: Acute Assessment: #1 diabetic foot ulcer with sinus tract plantar right foot first MTPJ with associated spreading cellulitis of the right foot #2 diabetes with neuropathy #3 anticoagulant status #4 history of multiple PEs Plan: #1 admit for intravenous antibiotics per infectious disease service #2 likely will need a formal incision and drainage and debridement of all necrotic tissue placement of wound VAC once patient is medically optimized and bridged from Coumadin to anticoagulants per medicine service #3 request consultation from hospitalist service for management of diabetes and anticoagulation Assessment: #1 diabetic foot infection with ulceration with sinus tract plantar first MTPJ right foot #2 Multiple comorbidities including anticoagulation presently on heparin Plan: #1 continue present management with anticipation of surgical intervention and debridement deep cultures tomorrow under local anesthetic and sedation Qualifiers: Laterality: right Qualified Code(s): L97.512 - Non-pressure chronic ulcer of other part of right foot with fat layer exposed Subjective Principal diagnosis: Diabetic foot ulcer with infection and cellulitis Interval history: Presently without any chest pain nausea vomiting fever chills. Gram stain complete. Cultures pending until antibiotics will be then started at that time anticipate surgical intervention tomorrow with deep cultures Objective - Vital Signs Vital Signs: Vital Signs Temp Pulse Resp BP Pulse Ox 12/23/16 10:16 98.2 F 58 16 117/62 97 12/23/16 06:46 98.4 F 63 16 127/73 98 12/23/16 04:05 98.2 F 59 16 125/65 97 12/23/16 00:48 99.1 F 12/22/16 22:59 99.5 F 56 16 116/63 96 12/22/16 20:15 98.9 F 65 18 130/68 97 12/22/16 15:41 98.8 F 56 16 145/75 97 12/22/16 12:51 98.1 F 62 14 132/67 99 Intake and Output 12/22/16 12/23/16 12/23/16 23:59 07:59 15:59 Intake Total 168 / 168 1210 / 1210 Output Total 350 / 350 900 / 900 Balance -182 / -182 310 / 310 Intake: IV Fluids 168 / 168 1210 / 1210 0.9 % Sodium Chloride 1, 1000 / 1000 000 ML @ 100 mls/hr IVC . Q10H SONDR[facility] Rx#:[id number] Heparin 25,000 UNIT/500 168 / 168 210 / 210 ML D5W 25,000 unit In 500 ml @ 14 UNIT/KG/HR 29.12 mls/hr IVC .[id number] SONDRA Rx#:[id number] Output: Urine 350 / 350 900 / 900 Other: Weight 104.38 kg Blood Glucose* 107 121 Patient Weight 12/23/16 23:59 Weight 104.38 kg - Exam Exam: Minimal resolution of his erythema and edema of the right foot wound. Incision: Present: swollen, inflamed - Lab Result Diagrams: 12/23/16 05:38 12/23/16 05:38 Labs: Abnormal lab results RBC 3.82 M/mcL (4.19-5.50) L 12/23/16 05:38 Hgb 11.1 g/dL (12.9-16.9) L 12/23/16 05:38 Hct 31.9 % (37.5-50.1) L 12/23/16 05:38 Immature Plt Fraction 8.4 % (1.1-6.1) H 12/22/16 15:57 ESR 41 mm/hr (0-10) H 12/22/16 15:00 PT 22.9 Seconds (9.4-12.1) H 12/23/16 05:38 APTT 80.3 Seconds (26.0-36.0) H 12/23/16 05:38 Sodium 135 mEq/L (136-145) L 12/23/16 05:38 BUN 33 mg/dL (8-26) H 12/23/16 05:38 Creatinine 2.21 mg/dL (0.72-1.25) H 12/23/16 05:38 Est GFR ( Amer) 37 (> 60) L 12/23/16 05:38 Est GFR (Non-Af Amer) 30 (> 60) L 12/23/16 05:38 Glucose 127 mg/dL (70-99) H 12/23/16 05:38 POC Glucose 107 (58-89) H 12/22/16 20:13 Hemoglobin A1c 6.6 % (-5.6) H 12/22/16 15:57 Calcium 7.9 mg/dL (8.6-10.8) L 12/23/16 05:38 C-Reactive Protein 155 mg/L (Less than 5) H 12/22/16 15:00 Urine Protein 30 mg/dL (Neg-Trace) H 12/22/16 18:47 Consult Discharge Plan - Plan Referrals: Richard Driver MD [Primary Care Provider] -
[2016-12-23] MEDS: Heparin 25,000 UNIT/500 ML D5W 25,000 UNIT/500 ML MLS IVC SCH (11:11)
[2016-12-23] MEDS: Multivit/Ca/Min/Fe/FA 1 TAB TABLET PO SCH (15:41)
--- NOTE | 2016-12-23 19:37 | Anesthesia Evaluation PreOp ---
Date of Encounter: 12/23/16 Time of Encounter: 19:10 - Past History Planned Operation: I&D Rt Foot Cardiac History: HTN, Hyperlipidemia Pulmonary History: Denies Any Significant HX, Other (Hx PE on lifelong anticoagulation) [employer] History: Denies Any Significant HX Other Medical History: Renal (Acute over Chronic Renal Disease), Diabetes Type II, Thyroid Anesthesia History: No Prior Anesthetic Complications Alcohol Use: none Drug use: none Medications and Allergies Amlodipine Besylate 10 mg PO DAILY 12/21/16 [History] Atenolol 100 mg PO DAILY 12/21/16 [History] Cholecalciferol (Vitamin D3) [Vitamin D] 2,000 unit PO DAILY 12/21/16 [History] Clindamycin HCl 300 mg PO Q6H #40 capsule 12/21/16 [Rx] Gabapentin [Neurontin] 400 mg PO TID 12/21/16 [History] Insulin Glargine,Hum.rec.anlog [Lantus Solostar] 30 unit SQ HS 12/21/16 [History ] Insulin LISPRO [Humalog Kwikpen U-100] 14 unit SQ TID 12/21/16 [History] Levothyroxine Sodium [Tirosint] 100 mcg PO QAM 12/21/16 [History] Lovastatin [Mevacor] 20 mg PO HS 12/21/16 [History] OxyCODONE/APAP 10/325 [Percocet 10/325 MG] 1 tab PO BID PRN 12/21/16 [History] Tizanidine HCl [Zanaflex] 4 mg PO TID 12/21/16 [History] Warfarin Sodium 5 mg PO SUTUTHSA 12/21/16 [History] hydroCHLOROthiazide [Hydrochlorothiazide] 25 mg PO DAILY 12/21/16 [History] Warfarin [Coumadin] 2.5 mg PO MOWEFR 12/22/16 [History] Allergies Penicillins Allergy (Verified 12/21/16 22:04) Hives - Meds/Allergy Pre-op Review Medications Reviewed: Yes Allergies Reviewed: Yes Beta Blockers on Current Med List: No Anesthesia Results - Labs 12/23/16 05:38 12/23/16 05:38 - Imaging EKG: pending Anesthesia Exam O2 Sat Weight 104.38 kg O2 Sat by Pulse Oximetry 97 O2 Sat by Pulse Oximetry 98 O2 Sat by Pulse Oximetry 97 O2 Sat by Pulse Oximetry 98 O2 Sat by Pulse Oximetry 97 O2 Sat by Pulse Oximetry 96 O2 Sat by Pulse Oximetry 97 Vital Signs Temp Pulse Resp BP Pulse Ox 98.1 F 62 14 132/67 99 12/22/16 12:51 12/22/16 12:51 12/22/16 12:51 12/22/16 12:51 12/22/16 12:51 Height: 6'4 Weight: 230 lbs NPO (# of Hours): MN Pain Scale: 0 - HEENT Pupil (Motor): Pupils equal, EOMI Mallampati: II Teeth: Normal Oral Opening: Greater than 3 - [employer] LOC: Oriented [employer] Motor: Normal RUE, Normal LUE, Normal RLE, Normal LLE, Normal Face [employer] Sensory: Normal: RUE, LUE, RLE, LLE, Face - Cardiac Rhythm: Regular Murmur: None JVD: No Carotid Bruit: No - Pulmonary Breath Sounds: bilateral Clear Respiratory Effort: Symmetrical Anesthesia Assess/Plan ASA Score: 3 (HTN DM Hypothyroid) Modified [place] Scale for Level of Consciousness: Cooperative, oriented, and tranquil Anesthetic Plan: MAC Monitoring Plan: Standard Monitors Recovery Plan: Other (Discussed MAC, possible GA, agrees to proceed)
[2016-12-23] MEDS: Insulin DETEMIR 100 UNIT/ML X5UNITS SQ SCH (21:12)
[2016-12-24] MEDS: Heparin 25,000 UNIT/500 ML D5W 25,000 UNIT/500 ML MLS IVC SCH ×2 (04:45→23:28)
[2016-12-24 06:43] LABS: INR 1.7; Prothrombin Time 18.1 Seconds (9.4-12.1)
[2016-12-24 06:51] LABS: Calcium 7.4 mg/dL (8.6-10.8)
[2016-12-24 06:56] LABS: Potassium 4.9 mEq/L (3.5-4.5)
[2016-12-24 07:01] LABS: Basophils % 0.5 %; Eosinophils # 0.2 K/mcL (0.0-0.6); Eosinophils % 3.8 %; Hemoglobin 9.9 g/dL (12.9-16.9); Immature Granulocytes % 0.7 % (0-4); Lymphocytes # 1.1 K/mcL (0.6-4.6); Lymphocytes % 17.5 %; Mean Corpuscular HGB Conc 34.1 g/dL (31.6-35.5); Mean Corpuscular Hemoglobin 27.7 pg (28.0-33.3); Mean Corpuscular Volume 81.2 fL (83.0-100.0); Monocytes # 0.5 K/mcL (0.0-1.3); Monocytes % 8.3 %; Neutrophils # 4.2 K/mcL (1.6-8.9); Platelet Count 163 K/mcL (140-400); Red Blood Count 3.57 M/mcL (4.19-5.50); Red Cell Distribution Width 12.5 % (11.5-14.5); Segmented Neutrophils % 69.2 %
--- NOTE | 2016-12-24 08:13 | Infectious Disease Progress No ---
Date of Encounter: 12/24/16 Time of Encounter: 08:12 - Assessment and Plan (1) Diabetic foot ulcer Current Visit: Yes Status: Acute Edema of his right foot with a penetrating ulceration on the plantar aspect with a sinus tract approximately 3 cm from the center of the wound distally toward the great toe. Surrounding erythema, no proximal streaking, no foul odor , minimal purulent drainage on dressing. Elevated CRP 155, ESR 41. X-ray of the right foot revealed chronic deformity of the first and second toes , with no radiographic evidence of osteomyelitis. MRI right foot reveals chronic bony changes at the 1st and 2nd toes and evidence of cellulitis at the 1st metatarsophalangeal joint, with ulceration along the plantar aspect of foot. No focal fluid collections are found. No MR evidence of osteomyelitis. Blood cultures were collected 12/21/16 and 12/22/16 show no growth to date Wound cultures collected 12/22/16 reveal abundant gram-negative rods Gram stain of right foot ulcer reveals moderate gram-positive cocci and many gram-negative rods. Recommendations: Anticipate incision and debridement today per podiatry. Need to obtain deep wound cultures. Will hold antibiotics at this time and await deep wound cultures. Patient is at very high risk for developing KENNETH with vancomycin administration given CKD stage III and current creatinine elevation He does not meet sepsis criteria at this time. If patient develops a Temp > 100.9F, Heart rate > 90, Respiratory rate > 20, or WBC > 12,000, will start Vancomycin and Cefepime. Will continue to monitor closely. Qualifiers: Diabetic foot ulcer location: toe Diabetes mellitus type: type 2 Laterality: right Non-pressure ulcer stage: with fat layer exposed Qualified Code(s): E11.621 - Type 2 diabetes mellitus with foot ulcer; L97.512 - Non-pressure chronic ulcer of other part of right foot with fat layer exposed (2) CKD (chronic kidney disease) stage 3, GFR 30-59 ml/min Current Visit: Yes Status: Acute Recommend IV hydration. Avoid nephrotoxins. (3) Insulin dependent diabetes mellitus Current Visit: Yes Status: Acute Management per internal medicine team (4) History of pulmonary embolism Current Visit: Yes Status: Acute Hold Coumadin at this time. Hold heparin drip, anticipate I&D of right foot ulcer this afternoon - Subjective Interval history: Patient seen and examined. Acute events overnight. He has increased purulent drainage from right diabetic foot ulcer today and is scheduled for I&D this afternoon. He denies fevers, chills, chest pain, shortness of breath, abdominal pain, nausea, vomiting, diarrhea, or worsening leg edema Infect Dis PN-Objective Data - Labs CBC & Chem 7: 12/24/16 05:49 12/24/16 05:49 Labs: Laboratory Results - last 24 hr 12/23/16 12/23/16 12/23/16 07:27 10:57 13:04 WBC RBC Hgb Hct MCV MCH MCHC RDW Plt Count MPV Immature Gran % Seg Neutrophils % Lymphocytes % Monocytes % Eosinophils % Basophils % Neutrophils # Lymphocytes # Monocytes # Eosinophils # Basophils # PT INR APTT 88.4 H Sodium Potassium Chloride Carbon Dioxide BUN Creatinine Est GFR ( Amer) Est GFR (Non-Af Amer) BUN/Creatinine Ratio Glucose POC Glucose 121 H 233 H Calculated Osmolality Calcium 12/23/16 12/23/16 12/24/16 16:42 20:29 05:49 WBC 6.0 RBC 3.57 L Hgb 9.9 L Hct 29.0 L MCV 81.2 L MCH 27.7 L MCHC 34.1 RDW 12.5 Plt Count 163 MPV 12.0 Immature Gran % 0.7 Seg Neutrophils % 69.2 Lymphocytes % 17.5 Monocytes % 8.3 Eosinophils % 3.8 Basophils % 0.5 Neutrophils # 4.2 Lymphocytes # 1.1 Monocytes # 0.5 Eosinophils # 0.2 Basophils # 0.0 PT INR APTT Sodium Potassium Chloride Carbon Dioxide BUN Creatinine Est GFR ( Amer) Est GFR (Non-Af Amer) BUN/Creatinine Ratio Glucose POC Glucose 141 H 225 H Calculated Osmolality Calcium 12/24/16 12/24/16 12/24/16 05:49 05:49 07:34 WBC RBC Hgb Hct MCV MCH MCHC RDW Plt Count MPV Immature Gran % Seg Neutrophils % Lymphocytes % Monocytes % Eosinophils % Basophils % Neutrophils # Lymphocytes # Monocytes # Eosinophils # Basophils # PT 18.1 H INR 1.7 APTT Sodium 135 L Potassium 4.9 H D Chloride 109 Carbon Dioxide 22 BUN 28 H Creatinine 1.97 H Est GFR ( Amer) 42 L Est GFR (Non-Af Amer) 34 L BUN/Creatinine Ratio 14 Glucose 246 H POC Glucose 204 H Calculated Osmolality 294 Calcium 7.4 L Cultures: Serology 12/22/16 Range/Units 18:47 Urine Color Yellow (Yellow) Urine Clarity Clear (Clear) Urine pH 6.0 (5.0-8.0) pH Units Ur Specific [place] 1.020 (1.010-1.025) Urine Protein 30 H (Neg-Trace) mg/dL Urine Glucose (UA) Normal (Normal) mg/dL Urine Ketones Negative (Negative) mg/dL Urine Blood Negative (Negative) Urine Nitrite Negative (Negative) Urine Bilirubin Negative (Negative) Urine Urobilinogen Normal (Normal) mg/dL Ur Leukocyte Esterase Negative (Negative) Urine Microscopic RBC 0-3 (0-3) per hpf Urine Microscopic WBC 0-3 (0-3) per hpf Ur Squamous Epith Cells Few (None-Few) per lpf Urine Bacteria None Seen (None-Few) per hpf Hyaline Casts None Seen (None-Few) per lpf Ur Culture Indicated? NO (NO) Exam - Constitutional Vitals: Temp Pulse Resp BP Pulse Ox 98.7 F 68 16 148/67 97 12/24/16 06:57 12/24/16 06:57 12/24/16 06:57 12/24/16 06:57 12/24/16 06:57 General appearance: cooperative, no acute distress, no febrile - Head Head exam: Present: atraumatic, normal inspection, normocephalic - Eye Eye exam: Present: PERRL. Absent: conjuntiva pink - ENT ENT exam: Present: mucous membranes moist, normal oropharynx - Neck Neck exam: Present: normal inspection. Absent: lymphadenopathy, tenderness, thyromegaly - Respiratory Respiratory exam: Present: CTAB. Absent: rales, rhonchi - Cardiovascular Cardiovascular exam: Present: RRR, +S1, +S2 - GI/Abdominal GI/Abdominal exam: Present: normal bowel sounds, soft. Absent: guarding, rebound - Extremities Exam Extremities exam: Present: full ROM Additional comments: Edema of his right foot with a penetrating ulceration on the plantar aspect with a sinus tract approximately 3 cm from the center of the wound distally toward the great toe. Purulent drainage saturating dressing. Surrounding erythema, no proximal streaking, no foul odor, . - Neurological Exam Neurological exam: Present: alert, oriented X3. Absent: altered - Psychiatric Psychiatric exam: Present: normal affect, normal mood - Skin Additional comments: Edema of his right foot with a penetrating ulceration on the plantar aspect with a sinus tract approximately 3 cm from the center of the wound distally toward the great toe. purulent drainage saturating dressing. Surrounding erythema, no proximal streaking, no foul odor . Consult Discharge Plan - Plan Referrals: Richard Driver MD [Primary Care Provider] - - Attending Attestation I examined this patient and my medical decision-making was reviewed with the Resident Physician. I agree with the documented findings, disposition and treatment plan as described except to the extent set forth below.
--- NOTE | 2016-12-24 08:57 | Internal Med Progress Note ---
<Newton Mcdonough - Last Filed: 12/24/16 13:06> Date of Encounter: 12/24/16 Time of Encounter: 08:35 - Assessment and plan (1) Diabetic foot ulcer Current Visit: Yes Status: Acute Assessment and plan: -Patient has diabetic ulcer on Plantar surface of R foot with surrounding cellulitis. -Plan for I&D today. IV abx per IDs recs Qualifiers: Diabetic foot ulcer location: toe Diabetes mellitus type: type 2 Laterality: right Non-pressure ulcer stage: with fat layer exposed Qualified Code(s): E11.621 - Type 2 diabetes mellitus with foot ulcer; L97.512 - Non-pressure chronic ulcer of other part of right foot with fat layer exposed (2) Type 2 diabetes mellitus Current Visit: Yes Status: Acute Assessment and plan: Hgb A1C 6.6 Continue Diabetic diet Continue Basal dose of insulin 26u HS Continue short acting insulin 8u TID with meals plus medium dose sliding scale correction ACHS. Continue hypoglycemic protocol. 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 -Holding Coumadin -Bridging with Heparin ggt Heparin stopped 6 hrs prior to surgery will bridge back to coumadin after surgery (4) History of pulmonary embolism Current Visit: Yes Status: Acute Assessment and plan: -Pt on client administrator coumadin due to Hx of unprovoked PE. -Continue anticoagulation management as per above. (5) Acute kidney injury superimposed on chronic kidney disease Current Visit: Yes Status: Acute Assessment and plan: Pt has hx of CKD stage III. Baseline Cr. 2.2 Pt had elevated Cr. 2.79 on admission. Pt was given IV hydration HCTZ held. Pt Cr. Back to baseline this morning 1.97 Continue to hold HCTZ as pt's BP is well controlled. (6) Hypertension Current Visit: Yes Status: Acute Assessment and plan: -Well controlled. -Continue atenolol and amlodipine. -continue to hold HCTZ Qualifiers: Hypertension type: essential hypertension Qualified Code(s): I10 - Essential (primary) hypertension (7) Hypothyroid Current Visit: Yes Status: Acute Assessment and plan: -Continue Synthroid Qualifiers: Hypothyroidism type: unspecified Qualified Code(s): E03.9 - Hypothyroidism , unspecified - Subjective Interval history: Patient resting comfortably. He does not have any pain in his foot. He denies Fever, Chills, Nausea, or vomiting. Patient for Surgery today at 5. Heparin stopped at 11. NPO for surgery. - Constitutional Vitals: Temp Pulse Resp BP Pulse Ox 98.7 F 68 16 148/67 97 12/24/16 06:57 12/24/16 06:57 12/24/16 06:57 12/24/16 06:57 12/24/16 06:57 General appearance: Present: A&O X 3, pleasant, no acute distress - Eye Eye exam: Present: sclera anicteric - ENT ENT exam: Present: mucous membranes moist - Respiratory Respiratory exam: Present: CTAB - Cardiovascular Cardiovascular exam: Present: RRR, +S1, +S2. Absent: gallop, rubs, systolic murmur - GI/Abdominal GI/Abdominal exam: Present: normal bowel sounds, soft. Absent: tenderness - Extremities Exam Additional comments: Warmth, swelling, erythema surrounding ulcer on Plantar surface of R foot. - Neurological Exam Neurological exam: Present: alert, oriented X3. Absent: speech deficit - Psychiatric Psychiatric exam: Present: normal affect, normal mood - Skin Additional comments: Warmth, swelling, erythema surrounding ulcer on Plantar surface of R foot. Internal Medicine: Result - Labs CBC & Chem 7: 12/24/16 05:49 12/24/16 05:49 Labs: Short CBC 12/24/16 Range/Units 05:49 WBC 6.0 (4.3-11.1) K/mcL Hgb 9.9 L (12.9-16.9) g/dL Hct 29.0 L (37.5-50.1) % Plt Count 163 (140-400) K/mcL Neutrophils # 4.2 (1.6-8.9) K/mcL BMP 12/24/16 05:49 Sodium 135 L Potassium 4.9 H D Chloride 109 Carbon Dioxide 22 BUN 28 H Creatinine 1.97 H Glucose 246 H Calcium 7.4 L - ABG Interpretation ABG results: PT/INR, D-dimer PT 18.1 Seconds (9.4-12.1) H 12/24/16 05:49 Consult Discharge Plan - Plan Referrals: Richard Driver MD [Primary Care Provider] - <Fabricio Archuleta - Last Filed: 12/24/16 17:44> Date of Encounter: 12/24/16 - Assessment and plan (1) Type 2 diabetes mellitus Current Visit: Yes Status: Acute Qualifiers: Diabetes mellitus complication status: with skin complications Diabetes mellitus complication detail: with foot ulcer Diabetes mellitus custodial insulin use: with client administrator use Qualified Code(s): E11.621 - Type 2 diabetes mellitus with foot ulcer; L97.509 - Non-pressure chronic ulcer of other part of unspecified foot with unspecified severity; Z79.4 - softball winder (current) use of insulin (2) Anticoagulated on Coumadin Current Visit: Yes Status: Acute (3) History of pulmonary embolism Current Visit: Yes Status: Acute (4) Hypertension Current Visit: Yes Status: Acute Qualifiers: Hypertension type: essential hypertension Qualified Code(s): I10 - Essential (primary) hypertension (5) Hypothyroid Current Visit: Yes Status: Acute Qualifiers: Hypothyroidism type: unspecified Qualified Code(s): E03.9 - Hypothyroidism , unspecified (6) Diabetic foot ulcer Current Visit: Yes Status: Acute Qualifiers: Diabetic foot ulcer location: toe Diabetes mellitus type: type 2 Laterality: right Non-pressure ulcer stage: with fat layer exposed Qualified Code(s): E11.621 - Type 2 diabetes mellitus with foot ulcer; L97.512 - Non-pressure chronic ulcer of other part of right foot with fat layer exposed - Constitutional Vitals: Temp Pulse Resp BP Pulse Ox 98.2 F 68 16 127/74 99 12/24/16 15:29 12/24/16 15:29 12/24/16 15:29 12/24/16 15:29 12/24/16 15:29 Internal Medicine: Result - Labs CBC & Chem 7: 12/24/16 05:49 12/24/16 05:49 Labs: Short CBC 12/24/16 Range/Units 05:49 WBC 6.0 (4.3-11.1) K/mcL Hgb 9.9 L (12.9-16.9) g/dL Hct 29.0 L (37.5-50.1) % Plt Count 163 (140-400) K/mcL Neutrophils # 4.2 (1.6-8.9) K/mcL BMP 12/24/16 05:49 Sodium 135 L Potassium 4.9 H D Chloride 109 Carbon Dioxide 22 BUN 28 H Creatinine 1.97 H Glucose 246 H Calcium 7.4 L - ABG Interpretation ABG results: PT/INR, D-dimer PT 18.1 Seconds (9.4-12.1) H 12/24/16 05:49 - Attending Attestation I examined this patient and my medical decision-making was reviewed with the Resident Physician on 12/24/16. I agree with the documented findings, disposition and treatment plan as described except to the extent set forth below. Mr. Akbar is currently admitted for diabetic foot ulcer. He is to go to OR for debridement today. He is moderate to high risk due to potential for infectious issues as well as diabetic issues. Mr. Akbar feels OK. He is waiting to go to OR. Heparin has been held this morning. No fever or chills. Vitals normal at this time. Exam Alert. Comfortable Mucus membranes moist Heart reg Lungs clear Abd soft Dressing intact I/P 1. Diabetic foot ulcer - OR today 2. DM Further diagnoses and plan as above.
[2016-12-24] MEDS: Insulin LISPRO 300 UNITS/3 ML VIAL SQ SCH ×7 (09:26→22:22)
[2016-12-24] MEDS: tiZANidine 4 MG TABLET PO SCH ×3 (09:26→22:22)
[2016-12-24] MEDS: Multivit/Ca/Min/Fe/FA 1 TAB TABLET PO SCH (09:27)
[2016-12-24] MEDS: Gabapentin 400 MG CAPSULE PO SCH ×3 (09:27→22:21)
[2016-12-24] MEDS: Cholecalciferol (D-3) 1,000 UNIT TABLET PO SCH (09:27)
[2016-12-24] MEDS: amLODIPine 5 MG TABLET PO SCH (09:27)
[2016-12-24] MEDS ORDERED: Vancomycin 1,500 MG in D5% in Water 250 ML IVPB SCH ×3 (17:00→21:00)
[2016-12-24] MEDS ORDERED: *HR* Midazolam HCl 2 MG/2 ML VIAL ONE (17:32)
[2016-12-24] MEDS ORDERED: *HR* FentaNYL (PF) 100 MCG/2 ML VIAL ONE (17:32)
[2016-12-24] MEDS ORDERED: Propofol 500 MG/50 ML INFUS..BTL ONE (17:33)
[2016-12-24] MEDS ORDERED: Cefepime HCl 2,000 MG in D5% in Water (Mini-Bag+) 100 ML IVPB SCH (18:00)
[2016-12-24] MEDS ORDERED: Bupivacaine/Clonidine Syringe 1 EACH SYRINGE ONE (18:02)
--- NOTE | 2016-12-24 19:31 | Anesthesia Evaluation Post Op ---
Date of Encounter: 12/24/16 Time of Encounter: 19:20 - Vital Signs Vital Signs: Vital Signs/O2 Sat/Glucose, Most Current Pulse BP Pulse Ox 12/24/16 19:08 64 138/85 97 - Lungs Lungs: Clear Ascult./Percussion - Airway Airway: Non-obstructed - Cardiovascular Regular Rate - Mental Status Mental Status: Alert & Oriented, Answers Appropriately - Pain Pain Scale: 0 - Nausea Vomiting Nausea Vomiting: Not Present - Hydration Hydration: NPO - Discharge PostOp Status: Transfer Patient to floor
[2016-12-24] MEDS ORDERED: *HR* Heparin 5,000 UNIT/ML VIAL IVP PRN ×2 (20:18)
[2016-12-24] MEDS ORDERED: D5% in Water 1,000 ML IVC PRN (20:18)
[2016-12-24] MEDS ORDERED: *HR* Dextrose 50 % in Water (Syg) 50 ML SYRINGE IVP PRN (20:18)
[2016-12-24] MEDS ORDERED: Dextrose Gel 15 GM PO PRN ×2 (20:18)
[2016-12-24] MEDS ORDERED: *HR* OxyCODONE/APAP 10/325 TABLET PO PRN (20:18)
--- NOTE | 2016-12-24 20:58 | Orthopedic Operative Note ---
Date of procedure: 12/24/16 Pre-op diagnosis: Diabetic foot ulcer with abscess plantar first MTPJ right foot Post-op diagnosis: same Procedure: 12/24/16 20:53 #1: Incision and drainage of multiple areas right foot #2 application of wound VAC Implants: None Complications: None Anesthesia: MAC, local Local Anesthetics: 0.25% Sensorcaine HCL SubQ (cc) Surgeon: Niels Castro Estimated blood loss (cc): 10 Tourniquet Time (Minutes): 0 Specimen: None Condition: stable Disposition: floor Procedure in Detail: 12/24/16 20:54 Details in summary of procedure: Patient was brought to surgical suite. A signed and procedure was performed. The patient was then transferred to the surgical table is probably safely and securely. The right foot was elevated on the foam block. Anesthetic timeout was taken. The right ankle was then prepped with alcohol 3 times a modified ankle block was carried out using local anesthetic. The right foot was then prepped and draped in usual sterile manner. Surgical timeout was taken. An ulceration on the plantar aspect first metatarsal joint was noted to be approximately 1.5 cm in length 1.0 cm in width. There is a sinus tract distally and proximally now which was a new finding an oblique fashion along the medial aspect of the first MTPJ. The incision was made from the medial aspect of the junction of the medial plantar skin of the distal first metatarsal in oblique fashion approximate 45 degrees to long axis the first metatarsal down to the plantar ulceration. At that time the ulceration was then excised with 2 semielliptical incisions and the incision was continued distally toward the sulcus of the first toe plantarly. Dissection continued to the deep fascial layer no obvious purulent drainage or loculated areas of pus were noted. The nonviable tissue along the sinus tract dorsally and medially was debrided accordingly with the curved Metzenbaum scissors and pickup. The dissection continued distally and laterally just distal to the first MTPJ. The complete wound was then debrided with an ultrasonic Misonix debrider. The wound bed was completely viable that point no further necrotic tissue was noted. Surgical excision of all necrotic tissue was carried out at the level of the fascial layer. No evidence of osseous structures were exposed. Satisfied we completely clean wound, the distal plantar to proximal portion of the wound was reanastomosed with 3-0 Prolene and a wound VAC was then applied proximally without difficulty or complication he was noted to function properly once employed. Estimated blood loss less than 10 mL complications, none patient was sent to the holding room in good condition onto his room on the floor. Vital signs are stable he was alert and oriented
[2016-12-24] MEDS: Insulin DETEMIR 100 UNIT/ML X5UNITS SQ SCH (22:22)
[2016-12-25 06:15] LABS: INR 1.5
[2016-12-25 06:19] LABS: Basophils % 0.7 %; Eosinophils # 0.2 K/mcL (0.0-0.6); Eosinophils % 3.6 %; Hematocrit 30.6 % (37.5-50.1); Hemoglobin 10.4 g/dL (12.9-16.9); Immature Granulocytes % 0.8 % (0-4); Lymphocytes % 16.9 %; Mean Corpuscular Hemoglobin 27.8 pg (28.0-33.3); Mean Corpuscular Volume 81.8 fL (83.0-100.0); Mean Platelet Volume 11.2 fL (9.4-12.4); Monocytes # 0.5 K/mcL (0.0-1.3); Monocytes % 7.3 %; Neutrophils # 4.3 K/mcL (1.6-8.9); Platelet Count 167 K/mcL (140-400); Red Blood Count 3.74 M/mcL (4.19-5.50); Red Cell Distribution Width 12.7 % (11.5-14.5); Segmented Neutrophils % 70.7 %
[2016-12-25 06:24] LABS: Potassium 4.1 mEq/L (3.5-4.5)
[2016-12-25 06:36] LABS: Activated Partial Thrombo Time 120.6 Seconds (26.0-36.0)
[2016-12-25] MEDS: Cefepime HCl 2,000 MG in D5% in Water (Mini-Bag+) 100 ML IVPB SCH ×2 (06:37→16:29)
[2016-12-25 06:40] LABS: Heparin anti-factor XA UFH 0.65 IU/mL (0.30-0.70)
[2016-12-25] MEDS: Insulin LISPRO 300 UNITS/3 ML VIAL SQ SCH ×7 (07:46→22:01)
[2016-12-25] MEDS: Cholecalciferol (D-3) 1,000 UNIT TABLET PO SCH (07:47)
[2016-12-25] MEDS: tiZANidine 4 MG TABLET PO SCH ×3 (07:47→22:00)
[2016-12-25] MEDS: Gabapentin 400 MG CAPSULE PO SCH ×3 (07:47→22:00)
[2016-12-25] MEDS: amLODIPine 5 MG TABLET PO SCH (07:47)
[2016-12-25] MEDS: Multivit/Ca/Min/Fe/FA 1 TAB TABLET PO SCH (07:48)
--- NOTE | 2016-12-25 09:02 | Internal Med Progress Note ---
<HersonhugoNewton - Last Filed: 12/25/16 11:46> Date of Encounter: 12/25/16 Time of Encounter: 09:20 - Assessment and plan (1) Diabetic foot ulcer Current Visit: Yes Status: Acute Assessment and plan: -Patient has diabetic ulcer on Plantar surface of R foot with surrounding cellulitis. -Pt had I&D yesterday POD1. IV abx per IDs recs Awaiting surgical wound cx results. Qualifiers: Diabetic foot ulcer location: toe Diabetes mellitus type: type 2 Laterality: right Non-pressure ulcer stage: with fat layer exposed Qualified Code(s): E11.621 - Type 2 diabetes mellitus with foot ulcer; L97.512 - Non-pressure chronic ulcer of other part of right foot with fat layer exposed (2) Type 2 diabetes mellitus Current Visit: Yes Status: Acute Assessment and plan: Sugars have been controlled. Continue Diabetic diet Continue Basal dose of insulin 26u HS Continue short acting insulin 8u TID with meals plus medium dose sliding scale correction ACHS. Continue hypoglycemic protocol. Continue to monitor Qualifiers: Diabetes mellitus complication status: with skin complications Diabetes mellitus complication detail: with foot ulcer Diabetes mellitus termite technician insulin use: with termite technician use Qualified Code(s): E11.621 - Type 2 diabetes mellitus with foot ulcer; L97.509 - Non-pressure chronic ulcer of other part of unspecified foot with unspecified severity; Z79.4 - residential (current) use of insulin (3) Anticoagulated on Coumadin Current Visit: Yes Status: Acute Assessment and plan: -Patient on termite technician Coumadin due to Saddle PE. -Patient's normal regimen is MWF 2.5mg, Tu,Th,Sa,Peterson 5mg. -Restarted pt on 5mg coumandin -Bridging with Heparin ggt -will monitor daily INR and adjust dose accordingly. (4) History of pulmonary embolism Current Visit: Yes Status: Acute Assessment and plan: -Pt on usp coumadin due to Hx of unprovoked PE. -Continue anticoagulation management as per above. (5) Acute kidney injury superimposed on chronic kidney disease Current Visit: Yes Status: Acute Assessment and plan: Pt has hx of CKD stage III. Baseline Cr. 2.2 Pt had elevated Cr. 2.79 on admission. Pt was given IV hydration HCTZ held. Pt Cr. Back to baseline this morning 1.79 Continue to hold HCTZ as pt's BP is well controlled. (6) Hypertension Current Visit: Yes Status: Acute Assessment and plan: -Well controlled on current regimen -Continue atenolol and amlodipine. -continue to hold HCTZ Qualifiers: Hypertension type: essential hypertension Qualified Code(s): I10 - Essential (primary) hypertension (7) Hypothyroid Current Visit: Yes Status: Acute Assessment and plan: Continue home Synthroid Qualifiers: Hypothyroidism type: unspecified Qualified Code(s): E03.9 - Hypothyroidism , unspecified - Subjective Interval history: Patient underwent I&D/ debriedment of his R foot yesterday evening. Patient reports no pain at this time. Patient has wound vac in place which has very little output this morning. Patient has no medical complaints. He was restarted on his heparin drip oost surgery and his coumadin was restarted this morning. We are awaiting surgical cultures. - Constitutional Vitals: Temp Pulse Resp BP Pulse Ox 98.8 F 62 18 136/65 96 12/25/16 06:54 12/25/16 06:54 12/25/16 06:54 12/25/16 06:54 12/25/16 06:54 General appearance: Present: A&O X 3, pleasant, no acute distress - Eye Eye exam: Present: sclera anicteric - ENT ENT exam: Present: mucous membranes moist - Respiratory Respiratory exam: Present: CTAB. Absent: rales, rhonchi, wheezes - Cardiovascular Cardiovascular exam: Present: RRR, +S1, +S2. Absent: gallop, rubs, systolic murmur - GI/Abdominal GI/Abdominal exam: Present: normal bowel sounds, soft. Absent: tenderness - Extremities Exam Additional comments: R foot is bandaged. Dressing C/D/I. Wound vac in place. Sparse liquid in wound vac. - Neurological Exam Neurological exam: Present: alert, oriented X3. Absent: speech deficit - Psychiatric Psychiatric exam: Present: normal affect, normal mood Internal Medicine: Result - Labs CBC & Chem 7: 12/25/16 05:57 12/25/16 05:57 Labs: Short CBC 12/25/16 Range/Units 05:57 WBC 6.1 (4.3-11.1) K/mcL Hgb 10.4 L (12.9-16.9) g/dL Hct 30.6 L (37.5-50.1) % Plt Count 167 (140-400) K/mcL Neutrophils # 4.3 (1.6-8.9) K/mcL BMP 12/25/16 05:57 Sodium 133 L Potassium 4.1 Chloride 104 Carbon Dioxide 24 BUN 23 Creatinine 1.79 H Glucose 236 H Calcium 8.0 L - ABG Interpretation ABG results: PT/INR, D-dimer PT 16.0 Seconds (9.4-12.1) H 12/25/16 05:57 Consult Discharge Plan - Plan Referrals: Richard Driver MD [Primary Care Provider] - <Fabricio Archuleta A - Last Filed: 12/25/16 18:23> Date of Encounter: 12/25/16 - Assessment and plan (1) Type 2 diabetes mellitus Current Visit: Yes Status: Acute Qualifiers: Diabetes mellitus complication status: with skin complications Diabetes mellitus complication detail: with foot ulcer Diabetes mellitus termite technician insulin use: with usp use Qualified Code(s): E11.621 - Type 2 diabetes mellitus with foot ulcer; L97.509 - Non-pressure chronic ulcer of other part of unspecified foot with unspecified severity; Z79.4 - predatory animal exterminator (current) use of insulin (2) Anticoagulated on Coumadin Current Visit: Yes Status: Acute (3) History of pulmonary embolism Current Visit: Yes Status: Acute (4) Hypertension Current Visit: Yes Status: Acute Qualifiers: Hypertension type: essential hypertension Qualified Code(s): I10 - Essential (primary) hypertension (5) Hypothyroid Current Visit: Yes Status: Acute Qualifiers: Hypothyroidism type: unspecified Qualified Code(s): E03.9 - Hypothyroidism , unspecified (6) Diabetic foot ulcer Current Visit: Yes Status: Acute Qualifiers: Diabetic foot ulcer location: toe Diabetes mellitus type: type 2 Laterality: right Non-pressure ulcer stage: with fat layer exposed Qualified Code(s): E11.621 - Type 2 diabetes mellitus with foot ulcer; L97.512 - Non-pressure chronic ulcer of other part of right foot with fat layer exposed (7) CKD (chronic kidney disease) stage 3, GFR 30-59 ml/min Current Visit: Yes Status: Chronic - Constitutional Vitals: Temp Pulse Resp BP Pulse Ox 98.5 F 92 18 129/65 97 12/25/16 15:35 12/25/16 15:35 12/25/16 15:35 12/25/16 15:35 12/25/16 15:35 Internal Medicine: Result - Labs CBC & Chem 7: 12/25/16 05:57 12/25/16 05:57 Labs: Short CBC 12/25/16 Range/Units 05:57 WBC 6.1 (4.3-11.1) K/mcL Hgb 10.4 L (12.9-16.9) g/dL Hct 30.6 L (37.5-50.1) % Plt Count 167 (140-400) K/mcL Neutrophils # 4.3 (1.6-8.9) K/mcL BMP 12/25/16 05:57 Sodium 133 L Potassium 4.1 Chloride 104 Carbon Dioxide 24 BUN 23 Creatinine 1.79 H Glucose 236 H Calcium 8.0 L - ABG Interpretation ABG results: PT/INR, D-dimer PT 16.0 Seconds (9.4-12.1) H 12/25/16 05:57 - Attending Attestation I examined this patient and my medical decision-making was reviewed with the Resident Physician on 12/25/16. I agree with the documented findings, disposition and treatment plan as described except to the extent set forth below. Mr. Akbar is currently admitted for diabetic foot ulcer s/p debridement. He is moderate risk due to potential for worsening infectious status and managment of his blood sugars. Mr. Akbar is resting comfortably. No fever or chills. Pain OK. No GI issues. Cultures pending. Exam alert. Comfortable Mucus membranes dry Heart reg No wheeze Abd soft No edema I/P 1. Diabetic foot ulcer s/p debridement 2. DM Further diagnoses and plan as above.
[2016-12-25] MEDS ORDERED: *HR* Warfarin 5 MG TABLET PO ONE (09:18)
--- NOTE | 2016-12-25 12:36 | Infectious Disease Progress No ---
Date of Encounter: 12/25/16 Time of Encounter: 12:34 - Assessment and Plan (1) Diabetic foot ulcer Current Visit: Yes Status: Acute The patient presented with edema of his right foot with a penetrating ulceration on the plantar aspect with a sinus tract approximately 3 cm from the center of the wound distally toward the great toe. Surrounding erythema, no proximal streaking, no foul odor, minimal purulent drainage on dressing. Elevated CRP 155, ESR 41. X-ray of the right foot revealed chronic deformity of the first and second toes , with no radiographic evidence of osteomyelitis. MRI right foot reveals chronic bony changes at the 1st and 2nd toes and evidence of cellulitis at the 1st metatarsophalangeal joint, with ulceration along the plantar aspect of foot. No focal fluid collections are found. No MR evidence of osteomyelitis. Blood cultures were collected 12/21/16 and 12/22/16 show no growth to date Wound cultures collected 12/22/16 reveal grew E. coli and a second GNR, pending ID. Status post I & D of multiple areas of the right foot with application of wound VAC 12/24/[address] Castro. Operative report reviewed. No gross purulence of evidence of OM noted intra-op. Intra-op cultures obtained and are pending. Continue wound care and activity restrictions as outlined by the primary team. Continue Vancomycin IV. Pharmacy to dose. Goal trough ~15. Continue Cefepime 2 grams IV Q12H. Duration of treatment depends on the clinical picture. Await intra-operative culture. Will de-escalate if/when able. Monitor renal function and for drug toxicity and dose-adjust antibiotics. Qualifiers: Diabetic foot ulcer location: toe Diabetes mellitus type: type 2 Laterality: right Non-pressure ulcer stage: with fat layer exposed Qualified Code(s): E11.621 - Type 2 diabetes mellitus with foot ulcer; L97.512 - Non-pressure chronic ulcer of other part of right foot with fat layer exposed (2) CKD (chronic kidney disease) stage 3, GFR 30-59 ml/min Current Visit: Yes Status: Acute Serum creatinine improved. Continue to trend. Avoid nephrotoxins as able and dose-adjust antibiotics. (3) Hypothyroid Current Visit: Yes Status: Acute Qualifiers: Hypothyroidism type: unspecified Qualified Code(s): E03.9 - Hypothyroidism , unspecified (4) Type 2 diabetes mellitus Current Visit: Yes Status: Acute Hgb A1C 6.6. Recommend aggressive glucose monitoring and control to promote wound healing and prevent re-infection. Qualifiers: Diabetes mellitus complication status: with skin complications Diabetes mellitus complication detail: with foot ulcer Diabetes mellitus residential insulin use: with termite control technician use Qualified Code(s): E11.621 - Type 2 diabetes mellitus with foot ulcer; L97.509 - Non-pressure chronic ulcer of other part of unspecified foot with unspecified severity; Z79.4 - long term care social worker (current) use of insulin - Subjective Interval history: Patient seen and examined. No acute events noted overnight. Patient resting quietly in bed. Denies any acute complaints at this time. Denies any fevers or chills or rigors. Denies any chest pain, shortness of breath, or cough. Denies any nausea, vomiting, diarrhea, or constipation. Denies any abdominal pain and states appetite is okay. Denies any urinary complaints. Denies any pain at the surgical site. Denies any oral thrush a few scattered lesions. Infect Dis PN-Objective Data - Labs CBC & Chem 7: 12/25/16 05:57 12/25/16 05:57 Labs: Laboratory Results - last 24 hr 12/24/16 12/24/16 12/24/16 12:43 20:48 22:50 WBC RBC Hgb Hct MCV MCH MCHC RDW Plt Count MPV Immature Gran % Seg Neutrophils % Lymphocytes % Monocytes % Eosinophils % Basophils % Neutrophils # Lymphocytes # Monocytes # Eosinophils # Basophils # PT INR APTT 25.7 L D 27.8 Heparin Anti-Xa, Unfract Sodium Potassium Chloride Carbon Dioxide BUN Creatinine Est GFR ( Amer) Est GFR (Non-Af Amer) BUN/Creatinine Ratio Glucose POC Glucose 194 H Calculated Osmolality Calcium 12/25/16 12/25/16 12/25/16 05:57 05:57 05:57 WBC 6.1 RBC 3.74 L Hgb 10.4 L Hct 30.6 L MCV 81.8 L MCH 27.8 L MCHC 34.0 RDW 12.7 Plt Count 167 MPV 11.2 Immature Gran % 0.8 Seg Neutrophils % 70.7 Lymphocytes % 16.9 Monocytes % 7.3 Eosinophils % 3.6 Basophils % 0.7 Neutrophils # 4.3 Lymphocytes # 1.0 Monocytes # 0.5 Eosinophils # 0.2 Basophils # 0.0 PT 16.0 H INR 1.5 APTT 120.6 H* D Heparin Anti-Xa, Unfract 0.65 Sodium 133 L Potassium 4.1 Chloride 104 Carbon Dioxide 24 BUN 23 Creatinine 1.79 H Est GFR ( Amer) 47 L Est GFR (Non-Af Amer) 38 L BUN/Creatinine Ratio 13 Glucose 236 H POC Glucose Calculated Osmolality 287 Calcium 8.0 L 12/25/16 12/25/16 07:05 11:05 WBC RBC Hgb Hct MCV MCH MCHC RDW Plt Count MPV Immature Gran % Seg Neutrophils % Lymphocytes % Monocytes % Eosinophils % Basophils % Neutrophils # Lymphocytes # Monocytes # Eosinophils # Basophils # PT INR APTT Heparin Anti-Xa, Unfract Sodium Potassium Chloride Carbon Dioxide BUN Creatinine Est GFR ( Amer) Est GFR (Non-Af Amer) BUN/Creatinine Ratio Glucose POC Glucose 210 H 169 H Calculated Osmolality Calcium Cultures: Cultures 12/22/16 15:55 Blood Culture - Preliminary Peripheral Venipuncture No growth. 12/22/16 15:52 Blood Culture - Preliminary Peripheral Venipuncture No growth. Serology 12/22/16 Range/Units 18:47 Urine Color Yellow (Yellow) Urine Clarity Clear (Clear) Urine pH 6.0 (5.0-8.0) pH Units Ur Specific [place] 1.020 (1.010-1.025) Urine Protein 30 H (Neg-Trace) mg/dL Urine Glucose (UA) Normal (Normal) mg/dL Urine Ketones Negative (Negative) mg/dL Urine Blood Negative (Negative) Urine Nitrite Negative (Negative) Urine Bilirubin Negative (Negative) Urine Urobilinogen Normal (Normal) mg/dL Ur Leukocyte Esterase Negative (Negative) Urine Microscopic RBC 0-3 (0-3) per hpf Urine Microscopic WBC 0-3 (0-3) per hpf Ur Squamous Epith Cells Few (None-Few) per lpf Urine Bacteria None Seen (None-Few) per hpf Hyaline Casts None Seen (None-Few) per lpf Ur Culture Indicated? NO (NO) Exam - Constitutional Vitals: Temp Pulse Resp BP Pulse Ox 98.3 F 73 20 138/58 98 12/25/16 11:00 12/25/16 11:00 12/25/16 11:00 12/25/16 11:00 12/25/16 11:00 General appearance: average body habitus, cooperative, no acute distress - Head Head exam: Present: atraumatic, normal inspection, normocephalic - Eye Eye exam: Present: EOMI, normal appearance, PERRL Pupils: Present: normal accommodation - ENT ENT exam: Present: mucous membranes moist - Neck Neck exam: Present: normal inspection - Respiratory Respiratory exam: Present: CTAB. Absent: rales, respiratory distress, rhonchi, wheezes - Cardiovascular Cardiovascular exam: Present: RRR, +S1, +S2 - GI/Abdominal GI/Abdominal exam: Present: distended, normal bowel sounds, soft. Absent: tenderness - Extremities Exam Extremities exam: Present: pedal edema (1+ RLE). Absent: joint swelling, tenderness Additional comments: Right foot wound VAC intact with sponge well-compressed. Small amount of drainage noted in the wound VAC canister. - Neurological Exam Neurological exam: Present: alert, oriented X3, no focal deficits - Psychiatric Psychiatric exam: Present: normal affect, normal mood - Skin Skin exam: Present: dry, intact, normal color, warm Consult Discharge Plan - Plan Referrals: Richard Driver MD [Primary Care Provider] -
[2016-12-25] MEDS: Heparin 25,000 UNIT/500 ML D5W 25,000 UNIT/500 ML MLS IVC SCH (20:30)
[2016-12-25] MEDS ORDERED: Vancomycin 1,500 MG in D5% in Water 250 ML IVPB SCH (21:00)
[2016-12-25] MEDS: Insulin DETEMIR 100 UNIT/ML X5UNITS SQ SCH (22:00)
[2016-12-26 03:39] LABS: Basophils % 0.5 %; Eosinophils # 0.3 K/mcL (0.0-0.6); Eosinophils % 3.4 %; Hematocrit 29.2 % (37.5-50.1); Immature Granulocytes % 1.1 % (0-4); Lymphocytes # 1.4 K/mcL (0.6-4.6); Lymphocytes % 18.4 %; Mean Corpuscular HGB Conc 34.2 g/dL (31.6-35.5); Mean Corpuscular Hemoglobin 28.2 pg (28.0-33.3); Mean Corpuscular Volume 82.5 fL (83.0-100.0); Mean Platelet Volume 11.2 fL (9.4-12.4); Monocytes # 0.5 K/mcL (0.0-1.3); Monocytes % 7.2 %; Neutrophils # 5.1 K/mcL (1.6-8.9); Platelet Count 186 K/mcL (140-400); Red Blood Count 3.54 M/mcL (4.19-5.50); Red Cell Distribution Width 12.8 % (11.5-14.5); Segmented Neutrophils % 69.4 %
[2016-12-26 03:44] LABS: INR 1.5; Prothrombin Time 16.1 Seconds (9.4-12.1)
[2016-12-26 04:14] LABS: Activated Partial Thrombo Time 68.7 Seconds (26.0-36.0)
[2016-12-26] MEDS: Cefepime HCl 2,000 MG in D5% in Water (Mini-Bag+) 100 ML IVPB SCH ×2 (05:58→16:56)
[2016-12-26] MEDS: Insulin LISPRO 300 UNITS/3 ML VIAL SQ SCH ×7 (07:56→20:18)
[2016-12-26] MEDS: Gabapentin 400 MG CAPSULE PO SCH ×3 (07:57→20:31)
[2016-12-26] MEDS: Cholecalciferol (D-3) 1,000 UNIT TABLET PO SCH (07:57)
[2016-12-26] MEDS: tiZANidine 4 MG TABLET PO SCH ×3 (07:57→20:32)
[2016-12-26] MEDS: Multivit/Ca/Min/Fe/FA 1 TAB TABLET PO SCH (07:58)
[2016-12-26] MEDS: amLODIPine 5 MG TABLET PO SCH (07:59)
[2016-12-26 13:30] LABS: BUN/Creatinine Ratio 11 (6-26); Blood Urea Nitrogen 20 mg/dL (8-26); eGFR For African Americans 45 (> 60); eGFR For Non-African Americans 37 (> 60)
[2016-12-26] MEDS: Heparin 25,000 UNIT/500 ML D5W 25,000 UNIT/500 ML MLS IVC SCH (16:10)
--- NOTE | 2016-12-26 18:05 | Internal Med Progress Note ---
Date of Encounter: 12/26/16 Time of Encounter: 10:00 - Assessment and plan (1) Contact dermatitis Current Visit: Yes Status: Acute Assessment and plan: Most likely due to sheets and detergent. PO Benadryl. Qualifiers: Contact dermatitis type: allergic Contact dermatitis trigger: other trigger Qualified Code(s): L23.89 - Allergic contact dermatitis due to other agents; L23.8 - Allergic contact dermatitis due to other agents (2) Type 2 diabetes mellitus Current Visit: Yes Status: Acute Assessment and plan: Sugars have been controlled. Continue Diabetic diet Continue Basal dose of insulin 26u HS Continue short acting insulin 8u TID with meals plus medium dose sliding scale correction ACHS. Continue hypoglycemic protocol. Continue to monitor Qualifiers: Diabetes mellitus complication status: with skin complications Diabetes mellitus complication detail: with foot ulcer Diabetes mellitus long term care administrator insulin use: with long term care administrator use Qualified Code(s): E11.621 - Type 2 diabetes mellitus with foot ulcer; L97.509 - Non-pressure chronic ulcer of other part of unspecified foot with unspecified severity; Z79.4 - long term care administrator (current) use of insulin (3) Anticoagulated on Coumadin Current Visit: Yes Status: Acute Assessment and plan: -Patient on long term care administrator Coumadin due to Saddle PE. -Patient's normal regimen is MWF 2.5mg, Tu,Th,Sa,Peterson 5mg. -Restarted pt on 5mg coumandin -Bridging with Heparin ggt -will monitor daily INR and adjust dose accordingly. (4) History of pulmonary embolism Current Visit: Yes Status: Acute Assessment and plan: -Pt on long term care administrator coumadin due to Hx of unprovoked PE. -Continue anticoagulation management as per above. (5) Hypertension Current Visit: Yes Status: Acute Assessment and plan: -Well controlled on current regimen -Continue atenolol and amlodipine. -continue to hold HCTZ Qualifiers: Hypertension type: essential hypertension Qualified Code(s): I10 - Essential (primary) hypertension (6) Hypothyroid Current Visit: Yes Status: Acute Assessment and plan: Continue home Synthroid Qualifiers: Hypothyroidism type: unspecified Qualified Code(s): E03.9 - Hypothyroidism , unspecified (7) Diabetic foot ulcer Current Visit: Yes Status: Acute Assessment and plan: -S/P debridement. On IV abx. Will d/c Vanc as cx is growing just E coli. Qualifiers: Diabetic foot ulcer location: toe Diabetes mellitus type: type 2 Laterality: right Non-pressure ulcer stage: with fat layer exposed Qualified Code(s): E11.621 - Type 2 diabetes mellitus with foot ulcer; L97.512 - Non-pressure chronic ulcer of other part of right foot with fat layer exposed (8) CKD (chronic kidney disease) stage 3, GFR 30-59 ml/min Current Visit: Yes Status: Chronic Assessment and plan: Monitor. - Subjective Interval history: Mr. Akbar is currently admitted for diabetic wound infection s/p debridement. He remains moderate risk due to blood sugars and need for IV abx. Mr. Akbar has a rash on his back. Otherwise he has no new issues. No fever or chills. No GI symptoms. Tolerating abx. - Constitutional Vitals: Temp Pulse Resp BP Pulse Ox 97.9 F 52 16 126/71 97 12/26/16 16:48 12/26/16 16:48 12/26/16 16:48 12/26/16 16:48 12/26/16 16:48 General appearance: Present: A&O X 3, pleasant - Head Head exam: Present: normocephalic - Eye Eye exam: Present: EOMI, conjuntiva pink - ENT ENT exam: Present: mucous membranes moist - Respiratory Respiratory exam: Absent: rhonchi, wheezes - Cardiovascular Cardiovascular exam: Present: RRR. Absent: tachycardia - GI/Abdominal GI/Abdominal exam: Present: soft. Absent: tenderness - Extremities Exam Extremities exam: Present: warm - Neurological Exam Neurological exam: Present: alert, oriented X3, no focal deficits - Skin Skin exam: Present: rash (On back), warm Internal Medicine: Result - Labs CBC & Chem 7: 12/26/16 03:30 12/26/16 13:08 Labs: Short CBC 12/26/16 Range/Units 03:30 WBC 7.4 (4.3-11.1) K/mcL Hgb 10.0 L (12.9-16.9) g/dL Hct 29.2 L (37.5-50.1) % Plt Count 186 (140-400) K/mcL Neutrophils # 5.1 (1.6-8.9) K/mcL BMP 12/26/16 13:08 BUN 20 Creatinine 1.83 H - ABG Interpretation ABG results: PT/INR, D-dimer PT 16.1 Seconds (9.4-12.1) H 12/26/16 03:30 Consult Discharge Plan - Plan Referrals: Richard Driver MD [Primary Care Provider] -
[2016-12-26] MEDS: Insulin DETEMIR 100 UNIT/ML X5UNITS SQ SCH (20:32)
--- NOTE | 2016-12-26 22:20 | Podiatry Progress Note ---
Date of Encounter: 12/26/16 Time of Encounter: 22:18 - Assessment and Plan (1) Cellulitis Current Visit: No Status: Acute We will continue the prior plan with no changes. Qualifiers: Site of cellulitis: extremity Site of cellulitis of extremity: lower extremity Laterality: unspecified laterality Qualified Code(s): L03.119 - Cellulitis of unspecified part of limb Subjective Principal diagnosis: Diabetic foot ulcer with infection and cellulitis Interval history: Patient relates no new complaints and states that he seems to be doing better. Objective - Vital Signs Vital Signs: Vital Signs Temp Pulse Resp BP Pulse Ox 12/26/16 18:31 98.1 F 55 15 132/62 97 12/26/16 16:48 97.9 F 52 16 126/71 97 12/26/16 10:46 98.0 F 56 17 129/56 98 12/26/16 07:43 98.1 F 60 16 155/78 96 12/26/16 00:29 97.6 F 56 17 131/70 96 Intake and Output 12/26/16 12/26/16 12/26/16 07:59 15:59 23:59 Intake Total 163 / 163 240 / 240 502 / 502 Output Total 400 / 400 250 / 250 Balance -237 / -237 -10 / -10 502 / 502 Intake: IV Fluids 163 / 163 502 / 502 Heparin 25,000 UNIT/500 163 / 163 302 / 302 ML D5W 25,000 unit In 500 ml @ 14 UNIT/KG/HR 29.12 mls/hr IVC .[id number] SONDRA Rx#:[id number] Maxipime 2,000 MG In 200 / 200 Dextrose 5% (Minibag+) 100 ML 100 ML @ 200 mls/ hr IVPB Q12HR SONDRA Rx#: [id number] Oral 240 / 240 Output: Urine 400 / 400 250 / 250 Other: Meal Lunch Dinner Percent of Meal Consumed 60% 15% Blood Glucose* 200 207 187 - Exam Exam: Improvement noted minimal drainage. No new erythema. Capillary fill time intact to the digits - Lab Result Diagrams: 12/26/16 03:30 12/26/16 13:08 Labs: Abnormal lab results RBC 3.54 M/mcL (4.19-5.50) L 12/26/16 03:30 Hgb 10.0 g/dL (12.9-16.9) L 12/26/16 03:30 Hct 29.2 % (37.5-50.1) L 12/26/16 03:30 MCV 82.5 fL (83.0-100.0) L 12/26/16 03:30 Immature Plt Fraction 8.4 % (1.1-6.1) H 12/22/16 15:57 ESR 41 mm/hr (0-10) H 12/22/16 15:00 PT 16.1 Seconds (9.4-12.1) H 12/26/16 03:30 APTT 68.7 Seconds (26.0-36.0) H 12/26/16 03:30 Sodium 133 mEq/L (136-145) L 12/25/16 05:57 Creatinine 1.83 mg/dL (0.72-1.25) H 12/26/16 13:08 Est GFR ( Amer) 45 (> 60) L 12/26/16 13:08 Est GFR (Non-Af Amer) 37 (> 60) L 12/26/16 13:08 Glucose 236 mg/dL (70-99) H 12/25/16 05:57 POC Glucose 187 (58-89) H 12/26/16 20:10 Hemoglobin A1c 6.6 % (-5.6) H 12/22/16 15:57 Calcium 8.0 mg/dL (8.6-10.8) L 12/25/16 05:57 C-Reactive Protein 155 mg/L (Less than 5) H 12/22/16 15:00 Urine Protein 30 mg/dL (Neg-Trace) H 12/22/16 18:47 Microbiology, Last 48 Hours 12/24/16 19:02 Wound Culture - Preliminary Right Foot Escherichia coli Consult Discharge Plan - Plan Referrals: Richard Driver MD [Primary Care Provider] -
[2016-12-27 03:32] LABS: Basophils % 0.4 %; Eosinophils # 0.5 K/mcL (0.0-0.6); Eosinophils % 5.9 %; Hematocrit 29.2 % (37.5-50.1); Hemoglobin 10.1 g/dL (12.9-16.9); Immature Granulocytes % 1.9 % (0-4); Lymphocytes # 1.5 K/mcL (0.6-4.6); Lymphocytes % 18.1 %; Mean Corpuscular HGB Conc 34.6 g/dL (31.6-35.5); Mean Corpuscular Hemoglobin 28.5 pg (28.0-33.3); Mean Corpuscular Volume 82.3 fL (83.0-100.0); Mean Platelet Volume 11.2 fL (9.4-12.4); Monocytes # 0.6 K/mcL (0.0-1.3); Monocytes % 7.6 %; Neutrophils # 5.5 K/mcL (1.6-8.9); Platelet Count 183 K/mcL (140-400); Red Blood Count 3.55 M/mcL (4.19-5.50); Red Cell Distribution Width 12.9 % (11.5-14.5); Segmented Neutrophils % 66.1 %
[2016-12-27 03:37] LABS: INR 1.4; Prothrombin Time 15.2 Seconds (9.4-12.1)
[2016-12-27 03:43] LABS: Calcium 8.2 mg/dL (8.6-10.8); Magnesium 1.9 mg/dL (1.6-2.6); Potassium 3.9 mEq/L (3.5-4.5)
[2016-12-27 03:48] LABS: Platelet Estimate Normal (Normal); Reactive Lymphocytes Present (Not Present)
[2016-12-27] MEDS: Cefepime HCl 2,000 MG in D5% in Water (Mini-Bag+) 100 ML IVPB SCH ×2 (06:07→16:55)
[2016-12-27] MEDS: Gabapentin 400 MG CAPSULE PO SCH ×3 (08:39→19:59)
[2016-12-27] MEDS: tiZANidine 4 MG TABLET PO SCH ×3 (08:39→19:59)
[2016-12-27] MEDS: Multivit/Ca/Min/Fe/FA 1 TAB TABLET PO SCH (08:39)
[2016-12-27] MEDS: Cholecalciferol (D-3) 1,000 UNIT TABLET PO SCH (08:39)
[2016-12-27] MEDS: Insulin LISPRO 300 UNITS/3 ML VIAL SQ SCH ×7 (08:40→20:04)
[2016-12-27] MEDS: amLODIPine 5 MG TABLET PO SCH (08:40)
[2016-12-27] MEDS: Heparin 25,000 UNIT/500 ML D5W 25,000 UNIT/500 ML MLS IVC SCH (11:42)
--- NOTE | 2016-12-27 16:45 | Internal Med Progress Note ---
Date of Encounter: 12/27/16 Time of Encounter: 08:00 - Assessment and plan (1) Contact dermatitis Current Visit: Yes Status: Acute Assessment and plan: Seems to be somewhat better. Continue Benadryl. Qualifiers: Contact dermatitis type: allergic Contact dermatitis trigger: other trigger Qualified Code(s): L23.89 - Allergic contact dermatitis due to other agents; L23.8 - Allergic contact dermatitis due to other agents (2) Type 2 diabetes mellitus Current Visit: Yes Status: Acute Assessment and plan: Sugars have been controlled. Continue Diabetic diet Continue Basal dose of insulin 26u HS Continue short acting insulin 8u TID with meals plus medium dose sliding scale correction ACHS. Continue hypoglycemic protocol. Continue to monitor Qualifiers: Diabetes mellitus complication status: with skin complications Diabetes mellitus complication detail: with foot ulcer Diabetes mellitus watermelon harvesting supervisor insulin use: with watermelon harvesting supervisor use Qualified Code(s): E11.621 - Type 2 diabetes mellitus with foot ulcer; L97.509 - Non-pressure chronic ulcer of other part of unspecified foot with unspecified severity; Z79.4 - long-term (current) use of insulin (3) Anticoagulated on Coumadin Current Visit: Yes Status: Acute Assessment and plan: -INR slowly increasing. Continue heparin bridge. (4) History of pulmonary embolism Current Visit: Yes Status: Acute Assessment and plan: -Pt on [facility] coumadin due to Hx of unprovoked PE. -Continue anticoagulation management as per above. (5) Hypertension Current Visit: Yes Status: Acute Assessment and plan: -Well controlled on current regimen -Continue atenolol and amlodipine. -continue to hold HCTZ Qualifiers: Hypertension type: essential hypertension Qualified Code(s): I10 - Essential (primary) hypertension (6) Hypothyroid Current Visit: Yes Status: Acute Assessment and plan: Continue home Synthroid Qualifiers: Hypothyroidism type: unspecified Qualified Code(s): E03.9 - Hypothyroidism , unspecified (7) Diabetic foot ulcer Current Visit: Yes Status: Acute Assessment and plan: -S/P debridement. On IV abx. Qualifiers: Diabetic foot ulcer location: toe Diabetes mellitus type: type 2 Laterality: right Non-pressure ulcer stage: with fat layer exposed Qualified Code(s): E11.621 - Type 2 diabetes mellitus with foot ulcer; L97.512 - Non-pressure chronic ulcer of other part of right foot with fat layer exposed (8) CKD (chronic kidney disease) stage 3, GFR 30-59 ml/min Current Visit: Yes Status: Chronic Assessment and plan: Monitor. - Subjective Interval history: Mr. Akbar is currently admitted for diabetic wound infection s/p debridement. He remains moderate risk due to blood sugars and need for IV abx. Mr. Akbar is resting comfortably. No other issues overnight. No fever or chills. Tolerating heparin and abx. - Constitutional Vitals: Temp Pulse Resp BP Pulse Ox 98.5 F 101 18 148/68 99 12/27/16 14:44 12/27/16 14:44 12/27/16 14:44 12/27/16 14:44 12/27/16 14:44 General appearance: Present: A&O X 3, pleasant - Head Head exam: Present: normocephalic - Eye Eye exam: Present: conjuntiva pink - ENT ENT exam: Present: mucous membranes moist - Respiratory Respiratory exam: Present: CTAB. Absent: rhonchi, wheezes - Cardiovascular Cardiovascular exam: Present: RRR. Absent: tachycardia - GI/Abdominal GI/Abdominal exam: Present: soft - Extremities Exam Extremities exam: Present: warm - Neurological Exam Neurological exam: Present: alert, oriented X3 - Skin Skin exam: Present: dry, warm Internal Medicine: Result - Labs CBC & Chem 7: 12/27/16 03:16 12/27/16 03:16 Labs: Short CBC 12/27/16 Range/Units 03:16 WBC 8.3 (4.3-11.1) K/mcL Hgb 10.1 L (12.9-16.9) g/dL Hct 29.2 L (37.5-50.1) % Plt Count 183 (140-400) K/mcL Neutrophils # 5.5 (1.6-8.9) K/mcL BMP 12/27/16 03:16 Sodium 133 L Potassium 3.9 Chloride 101 Carbon Dioxide 26 BUN 18 Creatinine 1.80 H Glucose 181 H Calcium 8.2 L - ABG Interpretation ABG results: PT/INR, D-dimer PT 15.2 Seconds (9.4-12.1) H 12/27/16 03:16 Consult Discharge Plan - Plan Referrals: Richard Driver MD [Primary Care Provider] -
[2016-12-27] MEDS ORDERED: *HR* Warfarin 7.5 MG TABLET PO ONE (16:53)
[2016-12-27] MEDS ORDERED: Warfarin perPT PO PRN (18:00)
[2016-12-27] MEDS ORDERED: *HR* Warfarin 5 MG TABLET PO ONE (18:00)
[2016-12-27] MEDS: Insulin DETEMIR 100 UNIT/ML X5UNITS SQ SCH (19:58)
--- NOTE | 2016-12-27 23:19 | Podiatry Progress Note ---
Date of Encounter: 12/27/16 Time of Encounter: 23:18 - Assessment and Plan (1) Cellulitis Current Visit: No Status: Acute We will continue the prior plan with no changes. Qualifiers: Site of cellulitis: extremity Site of cellulitis of extremity: lower extremity Laterality: unspecified laterality Qualified Code(s): L03.119 - Cellulitis of unspecified part of limb Subjective Principal diagnosis: Diabetic foot ulcer with infection and cellulitis Interval history: Patient relates no new complaints and states that he seems to be doing better. Objective - Vital Signs Vital Signs: Vital Signs Temp Pulse Resp BP Pulse Ox 12/27/16 19:27 98.1 F 63 17 157/74 97 12/27/16 14:44 98.5 F 101 18 148/68 99 12/27/16 09:53 98.1 F 67 16 129/64 96 12/27/16 06:44 97.9 F 63 16 127/68 98 12/26/16 23:46 97.7 F 58 16 130/66 97 Intake and Output 12/27/16 12/27/16 12/27/16 07:59 15:59 23:59 Intake Total 399 / 399 551 / 551 950 / 950 Output Total 1420 / 1420 750 / 750 500 / 500 Balance -1021 / -1021 -199 / -199 450 / 450 Intake: IV Fluids 399 / 399 201 / 201 100 / 100 Heparin 25,000 UNIT/500 299 / 299 201 / 201 ML D5W 25,000 unit In 500 ml @ 14 UNIT/KG/HR 29.12 mls/hr IVC .[id number] SONDRA Rx#:[id number] Maxipime 2,000 MG In 100 / 100 100 / 100 Dextrose 5% (Minibag+) 100 ML 100 ML @ 200 mls/ hr IVPB Q12HR SONDRA Rx#: [id number] Oral 350 / 350 850 / 850 Output: Urine 1420 / 1420 750 / 750 500 / 500 Other: Blood Glucose* 229 151 105 - Exam Exam: No strikethrough on the dressings. Patient's able to dorsiflex and plantarflex ankle. Sensation diminished consistent with peripheral neuropathy. Capillary fill time intact to the digits. - Lab Result Diagrams: 12/27/16 03:16 12/27/16 03:16 Labs: Abnormal lab results RBC 3.55 M/mcL (4.19-5.50) L 12/27/16 03:16 Hgb 10.1 g/dL (12.9-16.9) L 12/27/16 03:16 Hct 29.2 % (37.5-50.1) L 12/27/16 03:16 MCV 82.3 fL (83.0-100.0) L 12/27/16 03:16 Reactive Lymphocytes Present (Not Present) A 12/27/16 03:16 ESR 41 mm/hr (0-10) H 12/22/16 15:00 PT 15.2 Seconds (9.4-12.1) H 12/27/16 03:16 APTT 66.8 Seconds (26.0-36.0) H 12/27/16 03:16 Sodium 133 mEq/L (136-145) L 12/27/16 03:16 Creatinine 1.80 mg/dL (0.72-1.25) H 12/27/16 03:16 Est GFR ( Amer) 46 (> 60) L 12/27/16 03:16 Est GFR (Non-Af Amer) 38 (> 60) L 12/27/16 03:16 Glucose 181 mg/dL (70-99) H 12/27/16 03:16 POC Glucose 178 (58-89) H 12/27/16 20:03 Hemoglobin A1c 6.6 % (-5.6) H 12/22/16 15:57 Calcium 8.2 mg/dL (8.6-10.8) L 12/27/16 03:16 C-Reactive Protein 155 mg/L (Less than 5) H 12/22/16 15:00 Urine Protein 30 mg/dL (Neg-Trace) H 12/22/16 18:47 Microbiology, Last 48 Hours 12/24/16 19:02 Wound Culture - Final Right Foot Escherichia coli Consult Discharge Plan - Plan Referrals: Richard Driver MD [Primary Care Provider] -
[2016-12-28 04:51] LABS: INR 1.2; Prothrombin Time 13.5 Seconds (9.4-12.1)
[2016-12-28 04:54] LABS: Activated Partial Thrombo Time 75.4 Seconds (26.0-36.0)
[2016-12-28 05:12] LABS: Calcium 8.3 mg/dL (8.6-10.8); Magnesium 2.2 mg/dL (1.6-2.6)
[2016-12-28 05:47] LABS: Potassium 4.8 mEq/L (3.5-4.5)
[2016-12-28] MEDS: Cefepime HCl 2,000 MG in D5% in Water (Mini-Bag+) 100 ML IVPB SCH (05:52)
[2016-12-28 06:00] LABS: Hematocrit 30.3 % (37.5-50.1); Hemoglobin 10.4 g/dL (12.9-16.9); Mean Corpuscular HGB Conc 34.3 g/dL (31.6-35.5); Mean Corpuscular Hemoglobin 28.3 pg (28.0-33.3); Mean Corpuscular Volume 82.3 fL (83.0-100.0); Mean Platelet Volume 11.8 fL (9.4-12.4); Platelet Count 194 K/mcL (140-400); Red Blood Count 3.68 M/mcL (4.19-5.50); Red Cell Distribution Width 13.2 % (11.5-14.5)
[2016-12-28] MEDS: amLODIPine 5 MG TABLET PO SCH (07:37)
[2016-12-28] MEDS: tiZANidine 4 MG TABLET PO SCH ×2 (07:38→14:36)
[2016-12-28] MEDS: Multivit/Ca/Min/Fe/FA 1 TAB TABLET PO SCH (07:38)
[2016-12-28] MEDS: Cholecalciferol (D-3) 1,000 UNIT TABLET PO SCH (07:38)
[2016-12-28] MEDS: Gabapentin 400 MG CAPSULE PO SCH ×2 (07:39→14:37)
[2016-12-28] MEDS: Insulin LISPRO 300 UNITS/3 ML VIAL SQ SCH ×6 (07:40→16:52)
[2016-12-28] MEDS: Heparin 25,000 UNIT/500 ML D5W 25,000 UNIT/500 ML MLS IVC SCH (07:43)
[2016-12-28] MEDS: *HR* Enoxaparin 100 MG/ML SYRINGE SQ SCH ×2 (10:00→17:39)
--- NOTE | 2016-12-28 10:04 | Internal Med Progress Note ---
<Newton Mcdonough - Last Filed: 12/28/16 13:00> Date of Encounter: 12/28/16 Time of Encounter: 08:50 - Assessment and plan (1) Diabetic foot ulcer Status: Acute Assessment and plan: -S/P debridement. On IV abx. -continue abx per ID recs. Qualifiers: Diabetic foot ulcer location: toe Diabetes mellitus type: type 2 Laterality: right Non-pressure ulcer stage: with fat layer exposed Qualified Code(s): E11.621 - Type 2 diabetes mellitus with foot ulcer; L97.512 - Non-pressure chronic ulcer of other part of right foot with fat layer exposed (2) Type 2 diabetes mellitus Status: Acute Assessment and plan: -Sugars have been controlled. -Continue Diabetic diet -Continue Basal dose of insulin 26u HS -Continue short acting insulin 8u TID with meals plus medium dose sliding scale correction ACHS. -Continue hypoglycemic protocol. -Continue to monitor Qualifiers: Diabetes mellitus complication status: with skin complications Diabetes mellitus complication detail: with foot ulcer Diabetes mellitus terminal gauger supervisor insulin use: with nursing home use Qualified Code(s): E11.621 - Type 2 diabetes mellitus with foot ulcer; L97.509 - Non-pressure chronic ulcer of other part of unspecified foot with unspecified severity; Z79.4 - terminal operations supervisor (current) use of insulin (3) Anticoagulated on Coumadin Status: Acute Assessment and plan: -INR slowly increasing. -Stopped heparin drip. -will start lovenox injections and send patient home on lovenox 100mg BID SQ for 5 days. -Will f/u at coumadin clinic on 12/31/16. (4) History of pulmonary embolism Status: Acute Assessment and plan: Pt on nursing home coumadin due to Hx of unprovoked PE. Continue anticoagulation management as per above. (5) Acute kidney injury superimposed on chronic kidney disease Status: Acute Assessment and plan: -Pt has hx of CKD stage III. Baseline Cr. 2.2 -Pt had elevated Cr. 2.79 on admission. -Pt was given IV hydration HCTZ held. -Pt Cr. at baseline this morning 1.80 -Continue to hold HCTZ as pt's BP is well controlled. (6) Hypertension Status: Acute Assessment and plan: Well controlled on current regimen Continue home atenolol and amlodipine. continue to hold HCTZ Qualifiers: Hypertension type: essential hypertension Qualified Code(s): I10 - Essential (primary) hypertension (7) Hypothyroid Status: Acute Assessment and plan: -Continue home Synthroid Qualifiers: Hypothyroidism type: unspecified Qualified Code(s): E03.9 - Hypothyroidism , unspecified - Subjective Interval history: Patient underwent I&D/ debriedment of his R foot 12/24/16. POD 4. Patient reports no pain at this time. Patient reports wanting to go home and states he would be able to give himself lovenox injections. Pharmacy agrees patient is able to get lovenox injections. - Constitutional Vitals: Temp Pulse Resp BP Pulse Ox 98.3 F 68 14 144/71 95 12/28/16 07:05 12/28/16 07:05 12/28/16 07:05 12/28/16 07:05 12/28/16 07:53 General appearance: Present: A&O X 3, pleasant - Eye Eye exam: Present: PERRL - ENT ENT exam: Present: mucous membranes moist - Respiratory Respiratory exam: Present: CTAB. Absent: rales, rhonchi, wheezes - Cardiovascular Cardiovascular exam: Present: RRR, +S1, +S2. Absent: gallop, rubs, systolic murmur, tachycardia - GI/Abdominal GI/Abdominal exam: Present: normal bowel sounds, soft. Absent: tenderness - Extremities Exam Additional comments: R foot wrapped. Dressings C/D/I. - Neurological Exam Neurological exam: Present: alert, oriented X3. Absent: speech deficit - Psychiatric Psychiatric exam: Present: normal affect, normal mood Internal Medicine: Result - Labs CBC & Chem 7: 12/28/16 04:15 12/28/16 04:15 Labs: Short CBC 12/28/16 Range/Units 04:15 WBC 8.4 (4.3-11.1) K/mcL Hgb 10.4 L (12.9-16.9) g/dL Hct 30.3 L (37.5-50.1) % Plt Count 194 (140-400) K/mcL BMP 12/28/16 04:15 Sodium 133 L Potassium 4.8 H Chloride 103 Carbon Dioxide 24 BUN 16 Creatinine 1.80 H Glucose 200 H Calcium 8.3 L - ABG Interpretation ABG results: PT/INR, D-dimer PT 13.5 Seconds (9.4-12.1) H 12/28/16 04:15 Consult Discharge Plan - Plan Additional Instructions: Home Health to CHANGE DRESSING DAILY, cleanse incision line daily with mild soap and water, pat dry, apply betadine to incision line, with adaptic, 4x4 gauze and kerlix. TAKE ALL MEDS PRESCRIBED. Hold hydrochlorothiazide until seen by Primary Care Provider. Do not take Zanaflex while taking Levaquin. FOLLOW UP WITH COUMADIN CLINIC and notify that you are on Levquin. FOLLOW UP WITH PRIMARY DR this week. FOLLOW UP WITH DR. CASTRO IN THE WOUND CLINIC SCHEDULED IF FEVER, CHILLS, SHAKES, ODOR, CALL DR. CASTRO OFFICE. Home health care to change dressing daily. Protective weight bearing with cast boot. Referrals: Niels Castro DPM [Partnered Physician] - 01/06/17 10:15 am Richard Driver MD [Primary Care Provider] - Prescriptions: Enoxaparin [Lovenox] 100 mg SQ Q12HR #9 syr levoFLOXacin [Levaquin] 500 mg PO DAILY #14 tab <Fabricio Archuleta - Last Filed: 12/28/16 19:56> Date of Encounter: 12/28/16 - Assessment and plan (1) Type 2 diabetes mellitus Status: Acute Qualifiers: Diabetes mellitus complication status: with skin complications Diabetes mellitus complication detail: with foot ulcer Diabetes mellitus nursing home insulin use: with terminal gauger supervisor use Qualified Code(s): E11.621 - Type 2 diabetes mellitus with foot ulcer; L97.509 - Non-pressure chronic ulcer of other part of unspecified foot with unspecified severity; Z79.4 - terminal operations supervisor (current) use of insulin (2) Contact dermatitis Status: Resolved Qualifiers: Contact dermatitis type: allergic Contact dermatitis trigger: other trigger Qualified Code(s): L23.89 - Allergic contact dermatitis due to other agents; L23.8 - Allergic contact dermatitis due to other agents (3) Anticoagulated on Coumadin Status: Acute (4) History of pulmonary embolism Status: Acute (5) Hypertension Status: Acute Qualifiers: Hypertension type: essential hypertension Qualified Code(s): I10 - Essential (primary) hypertension (6) Hypothyroid Status: Acute Qualifiers: Hypothyroidism type: unspecified Qualified Code(s): E03.9 - Hypothyroidism , unspecified (7) Diabetic foot ulcer Status: Acute Qualifiers: Diabetic foot ulcer location: toe Diabetes mellitus type: type 2 Laterality: right Non-pressure ulcer stage: with fat layer exposed Qualified Code(s): E11.621 - Type 2 diabetes mellitus with foot ulcer; L97.512 - Non-pressure chronic ulcer of other part of right foot with fat layer exposed (8) CKD (chronic kidney disease) stage 3, GFR 30-59 ml/min Status: Chronic - Constitutional Vitals: Temp Pulse Resp BP Pulse Ox 98.0 F 58 14 115/62 95 12/28/16 15:29 12/28/16 15:29 12/28/16 15:29 12/28/16 15:29 12/28/16 15:29 Internal Medicine: Result - Labs CBC & Chem 7: 12/28/16 04:15 12/28/16 04:15 Labs: Short CBC 12/28/16 Range/Units 04:15 WBC 8.4 (4.3-11.1) K/mcL Hgb 10.4 L (12.9-16.9) g/dL Hct 30.3 L (37.5-50.1) % Plt Count 194 (140-400) K/mcL BMP 12/28/16 04:15 Sodium 133 L Potassium 4.8 H Chloride 103 Carbon Dioxide 24 BUN 16 Creatinine 1.80 H Glucose 200 H Calcium 8.3 L - ABG Interpretation ABG results: PT/INR, D-dimer PT 13.5 Seconds (9.4-12.1) H 12/28/16 04:15 - Attending Attestation I examined this patient and my medical decision-making was reviewed with the Resident Physician on 12/28/16. I agree with the documented findings, disposition and treatment plan as described except to the extent set forth below. Mr. Akbar is doing OK. His INR is still low. He remains moderate risk due to low INR and heparin. Exam Alert Comfortable Heart reg No wheeze Abd soft I/P 1. OM 2. Hx PE Transition to Lovenox with coumadin. OK to d/c today.
--- NOTE | 2016-12-28 11:11 | Infectious Disease Progress No ---
Date of Encounter: 12/28/16 Time of Encounter: 11:09 - Assessment and Plan (1) Diabetic foot ulcer Current Visit: Yes Status: Acute The patient presented with edema of his right foot with a penetrating ulceration on the plantar aspect with a sinus tract approximately 3 cm from the center of the wound distally toward the great toe. Surrounding erythema, no proximal streaking, no foul odor, minimal purulent drainage on dressing. Elevated CRP 155, ESR 41. X-ray of the right foot revealed chronic deformity of the first and second toes , with no radiographic evidence of osteomyelitis. MRI right foot reveals chronic bony changes at the 1st and 2nd toes and evidence of cellulitis at the 1st metatarsophalangeal joint, with ulceration along the plantar aspect of foot. No focal fluid collections are found. No MR evidence of osteomyelitis. Blood cultures were collected 12/21/16 and 12/22/16 show no growth to date Wound cultures collected 12/22/16 reveal grew E. coli and a second GNR, pending ID. Status post I & D of multiple areas of the right foot with application of wound VAC 12/24/[address] Franz. Operative report reviewed. No gross purulence of evidence of OM noted intra-op. Intra-op cultures obtained and reveal Escherichia coli with multiple drug sensitivity. Continue wound care and activity restrictions as outlined by the primary team. Discontinued Vancomycin IV on 12/25/16 secondary renal function Completed 4 days of Cefepime 2 grams IV Q12H. De-escalate antibiotics to oral Levaquin 500mg PO daily for 14 more days to complete treatment on 01/11/17. Monitor renal function and for drug toxicity and dose-adjust antibiotics. Qualifiers: Diabetic foot ulcer location: toe Diabetes mellitus type: type 2 Laterality: right Non-pressure ulcer stage: with fat layer exposed Qualified Code(s): E11.621 - Type 2 diabetes mellitus with foot ulcer; L97.512 - Non-pressure chronic ulcer of other part of right foot with fat layer exposed (2) CKD (chronic kidney disease) stage 3, GFR 30-59 ml/min Current Visit: Yes Status: Chronic Serum creatinine improved. Continue to trend. Avoid nephrotoxins as able and dose-adjust antibiotics. (3) Insulin dependent diabetes mellitus Current Visit: Yes Status: Acute Management per internal medicine team (4) History of pulmonary embolism Current Visit: Yes Status: Acute Anticoagulation per primary team. - Subjective Interval history: Patient seen and examined. Acute events overnight. His vancomycin was discontinued 12/25/16 secondary to renal function. He denies fevers, chills, chest pain, shortness of breath, abdominal pain, nausea, vomiting, diarrhea, or leg pain. Patient is asking about discharge plan. Infect Dis PN-Objective Data - Labs CBC & Chem 7: 12/28/16 04:15 12/28/16 04:15 Labs: Laboratory Results - last 24 hr 12/27/16 12/27/16 12/27/16 07:06 11:02 16:15 WBC RBC Hgb Hct MCV MCH MCHC RDW Plt Count MPV PT INR APTT Sodium Potassium Chloride Carbon Dioxide BUN Creatinine Est GFR ( Amer) Est GFR (Non-Af Amer) BUN/Creatinine Ratio Glucose POC Glucose 229 H 151 H 105 H Calculated Osmolality Calcium Magnesium 12/27/16 12/28/16 12/28/16 20:03 04:15 04:15 WBC 8.4 RBC 3.68 L Hgb 10.4 L Hct 30.3 L MCV 82.3 L MCH 28.3 MCHC 34.3 RDW 13.2 Plt Count 194 MPV 11.8 PT 13.5 H INR 1.2 APTT 75.4 H Sodium Potassium Chloride Carbon Dioxide BUN Creatinine Est GFR ( Amer) Est GFR (Non-Af Amer) BUN/Creatinine Ratio Glucose POC Glucose 178 H Calculated Osmolality Calcium Magnesium 12/28/16 04:15 WBC RBC Hgb Hct MCV MCH MCHC RDW Plt Count MPV PT INR APTT Sodium 133 L Potassium 4.8 H Chloride 103 Carbon Dioxide 24 BUN 16 Creatinine 1.80 H Est GFR ( Amer) 46 L Est GFR (Non-Af Amer) 38 L BUN/Creatinine Ratio 9 Glucose 200 H POC Glucose Calculated Osmolality 283 Calcium 8.3 L Magnesium 2.2 Cultures: Cultures 12/22/16 15:55 Blood Culture - Final Peripheral Venipuncture No growth. 12/22/16 15:52 Blood Culture - Final Peripheral Venipuncture No growth. 12/24/16 19:02 Wound Culture - Final Right Foot Escherichia coli Serology 12/22/16 Range/Units 18:47 Urine Color Yellow (Yellow) Urine Clarity Clear (Clear) Urine pH 6.0 (5.0-8.0) pH Units Ur Specific [place] 1.020 (1.010-1.025) Urine Protein 30 H (Neg-Trace) mg/dL Urine Glucose (UA) Normal (Normal) mg/dL Urine Ketones Negative (Negative) mg/dL Urine Blood Negative (Negative) Urine Nitrite Negative (Negative) Urine Bilirubin Negative (Negative) Urine Urobilinogen Normal (Normal) mg/dL Ur Leukocyte Esterase Negative (Negative) Urine Microscopic RBC 0-3 (0-3) per hpf Urine Microscopic WBC 0-3 (0-3) per hpf Ur Squamous Epith Cells Few (None-Few) per lpf Urine Bacteria None Seen (None-Few) per hpf Hyaline Casts None Seen (None-Few) per lpf Ur Culture Indicated? NO (NO) Exam - Constitutional Vitals: Temp Pulse Resp BP Pulse Ox 98.3 F 68 14 144/71 95 12/28/16 07:05 12/28/16 07:05 12/28/16 07:05 12/28/16 07:05 12/28/16 07:53 General appearance: cooperative, no acute distress, no febrile - Head Head exam: Present: atraumatic, normal inspection, normocephalic - Eye Eye exam: Present: PERRL, conjuntiva pink - ENT ENT exam: Present: mucous membranes moist, normal oropharynx - Neck Neck exam: Present: normal inspection. Absent: lymphadenopathy, tenderness, thyromegaly - Respiratory Respiratory exam: Present: CTAB. Absent: decreased breath sounds, rhonchi, wheezes - Cardiovascular Cardiovascular exam: Present: RRR, +S1, +S2 - GI/Abdominal GI/Abdominal exam: Present: distended, normal bowel sounds, soft. Absent: guarding, rebound, tenderness - Extremities Exam Additional comments: Dressing clean/dry/intact right lower extremity. - Neurological Exam Neurological exam: Present: alert, oriented X3. Absent: altered - Psychiatric Psychiatric exam: Present: normal affect, normal mood - Skin Skin exam: Present: dry, normal color, warm Additional comments: Dressing intact right lower extremities, no proximal streaking Consult Discharge Plan - Plan Additional Instructions: CHANGE DRESSING DAILY TAKE ALL MEDS PRESCRIBED FOLLOW UP WITH COUMADIN CLINIC FOLLOW UP WITH PRIMARY DR FOLLOW UP WITH DR. FRANZ IN THE WOUND CLINIC SCHEDULED IF FEVER, CHILLS, SHAKES, ODOR, CALL DR. FRANZ OFFICE Referrals: Niels rFanz DPM [Partnered Physician] - Richard Driver MD [Primary Care Provider] - Prescriptions: Enoxaparin [Lovenox] 100 mg SQ Q12HR #9 syr - Attending Attestation I examined this patient and my medical decision-making was reviewed with the Resident Physician. I agree with the documented findings, disposition and treatment plan as described except to the extent set forth below. Low index of suspicion for osteomyelitis. Discussed with Dr. Franz who also agrees with my clinical findings We'll switch patient to oral antibiotics to finish a two-week course If clinically patient does not improve might reconsider IV antibiotics after repeating imaging and evaluating for ostial again.
[2016-12-28] MEDS ORDERED: Aminoglycoside Consult 1 EACH MC ONE (13:28)
--- NOTE | 2016-12-28 13:58 | Podiatry Progress Note ---
Date of Encounter: 12/28/16 Time of Encounter: 12:55 - Assessment and Plan (1) Cellulitis Current Visit: No Status: Acute Qualifiers: Site of cellulitis: extremity Site of cellulitis of extremity: lower extremity Laterality: unspecified laterality Qualified Code(s): L03.119 - Cellulitis of unspecified part of limb (2) Diabetic foot ulcer Current Visit: Yes Status: Acute Status post I&D multiple areas of the right foot by Dr. Castro on 12/24/2016. WBC: 8.4, ESR: 41, CRP: 155 Intra operative cultures isolated E. Coli Ecchymosis and was discontinued, patient proceeded 4 days of IV Cefepime. Awaiting Infectious Disease recommendations. Patient will be discharged home with home health for daily dressing changes and antibiotic therapy per ID recommendations. Patient will need to continue use of cast boot and minimize weight bearing. Will need to f/u in wound care with Dr. Castro on 01/06/17. Qualifiers: Diabetic foot ulcer location: toe Diabetes mellitus type: type 2 Laterality: right Non-pressure ulcer stage: with fat layer exposed Qualified Code(s): E11.621 - Type 2 diabetes mellitus with foot ulcer; L97.512 - Non-pressure chronic ulcer of other part of right foot with fat layer exposed (3) Insulin dependent diabetes mellitus Current Visit: Yes Status: Acute Subjective Principal diagnosis: Diabetic foot ulcer with infection and cellulitis Interval history: Patient is status post I&D multiple areas right foot by Dr. Castro on 2016. Patient is sitting up in bed with dressing dry and intact to the right foot. Patient denies any pain currently. No complaints of fever, chills, nausea, vomiting. Patient denies any calf pain, chest pain or shortness of breath. Patient states she would like to go home today. Objective - Vital Signs Vital Signs: Vital Signs Temp Pulse Resp BP Pulse Ox 12/28/16 11:12 98.3 F 61 14 121/65 98 12/28/16 07:53 95 12/28/16 07:05 98.3 F 68 14 144/71 95 12/27/16 23:34 98.1 F 53 16 128/70 96 12/27/16 19:27 98.1 F 63 17 157/74 97 12/27/16 14:44 98.5 F 101 18 148/68 99 Intake and Output 12/27/16 12/28/16 12/28/16 23:59 07:59 15:59 Intake Total 950 / 950 500.0 / 500.0 585 / 585 Output Total 500 / 500 1100 / 1100 Balance 450 / 450 -600.0 / -600.0 585 / 585 Intake: IV Fluids 100 / 100 500.0 / 500.0 125 / 125 Heparin 25,000 UNIT/500 500.0 / 500.0 25 / 25 ML D5W 25,000 unit In 500 ml @ 14 UNIT/KG/HR 29.12 mls/hr IVC .[id number] SONDRA Rx#:[id number] Maxipime 2,000 MG In 100 / 100 100 / 100 Dextrose 5% (Minibag+) 100 ML 100 ML @ 200 mls/ hr IVPB Q12HR SONDRA Rx#: [id number] Oral 850 / 850 460 / 460 Output: Urine 500 / 500 550 / 550 Catheter 550 / 550 Other: Meal Breakfast Percent of Meal Consumed 100% Weight 107.9 kg Blood Glucose* 105 199 198 Patient Weight 12/28/16 23:59 Weight 107.9 kg - Exam Exam: General appearance: alert awake oriented X 3. Calm and pleasant, no acute distress.. Vascular: Right foot: Pedal pulses +2/4 DP/PT , No evidence of cyanosis, pallor or rubor, Edema graded at 1+/4, Skin Tempature warm, No calf pain with manual compression. capillary refill time is immediate to digits. Neurologic: Sensation intact with light touch to foot. . Postop Exam: S/P Sutures intact to incision line, no signs of dehiscence. Light periwound erythema, no open area, no drainage, no odor, no streaking. Minimal edema. - Lab Result Diagrams: 12/28/16 04:15 12/28/16 04:15 Labs: Abnormal lab results RBC 3.68 M/mcL (4.19-5.50) L 12/28/16 04:15 Hgb 10.4 g/dL (12.9-16.9) L 12/28/16 04:15 Hct 30.3 % (37.5-50.1) L 12/28/16 04:15 MCV 82.3 fL (83.0-100.0) L 12/28/16 04:15 Reactive Lymphocytes Present (Not Present) A 12/27/16 03:16 ESR 41 mm/hr (0-10) H 12/22/16 15:00 PT 13.5 Seconds (9.4-12.1) H 12/28/16 04:15 APTT 75.4 Seconds (26.0-36.0) H 12/28/16 04:15 Sodium 133 mEq/L (136-145) L 12/28/16 04:15 Potassium 4.8 mEq/L (3.5-4.5) H 12/28/16 04:15 Creatinine 1.80 mg/dL (0.72-1.25) H 12/28/16 04:15 Est GFR ( Amer) 46 (> 60) L 12/28/16 04:15 Est GFR (Non-Af Amer) 38 (> 60) L 12/28/16 04:15 Glucose 200 mg/dL (70-99) H 12/28/16 04:15 POC Glucose 178 (58-89) H 12/27/16 20:03 Hemoglobin A1c 6.6 % (-5.6) H 12/22/16 15:57 Calcium 8.3 mg/dL (8.6-10.8) L 12/28/16 04:15 C-Reactive Protein 155 mg/L (Less than 5) H 12/22/16 15:00 Urine Protein 30 mg/dL (Neg-Trace) H 12/22/16 18:47 Microbiology, Last 48 Hours 12/22/16 15:55 Blood Culture - Final Peripheral Venipuncture No growth. 12/22/16 15:52 Blood Culture - Final Peripheral Venipuncture No growth. 12/24/16 19:02 Wound Culture - Final Right Foot Escherichia coli Consult Discharge Plan - Plan Referrals: Richard Driver MD [Primary Care Provider] - Prescriptions: Enoxaparin [Lovenox] 100 mg SQ Q12HR #9 syr
[2016-12-28 15:32] VITALS: BP 115/62
--- NOTE | 2016-12-28 17:07 | Discharge Summary ---
Date of Encounter: 12/31/16 Time of Encounter: 17:00 - Discharge Diagnosis (1) Diabetic foot ulcer Priority: Primary Status: Acute Qualifiers: Diabetic foot ulcer location: toe Diabetes mellitus type: type 2 Laterality: right Non-pressure ulcer stage: with fat layer exposed Qualified Code(s): E11.621 - Type 2 diabetes mellitus with foot ulcer; L97.512 - Non-pressure chronic ulcer of other part of right foot with fat layer exposed (2) Insulin dependent diabetes mellitus Priority: Secondary Status: Acute - Discharge Medications Prescriptions: Enoxaparin [Lovenox] 100 mg SQ Q12HR #9 syr levoFLOXacin [Levaquin] 500 mg PO DAILY #14 tab Home Medications: Amlodipine Besylate 10 mg PO DAILY 12/21/16 [History] Atenolol 100 mg PO DAILY 12/21/16 [History] Cholecalciferol (Vitamin D3) [Vitamin D3] 2,000 unit PO DAILY 12/21/16 [History] Gabapentin [Neurontin] 400 mg PO TID 12/21/16 [History] Insulin Glargine,Hum.rec.anlog [Lantus Solostar] 30 unit SQ HS 12/21/16 [History ] Insulin LISPRO [Humalog Kwikpen U-100] 14 unit SQ TID 12/21/16 [History] Levothyroxine Sodium [Tirosint] 100 mcg PO QAM 12/21/16 [History] Lovastatin [Mevacor] 20 mg PO HS 12/21/16 [History] OxyCODONE/APAP 10/325 [Percocet 10/325 MG] 1 tab PO BID PRN 12/21/16 [History] Warfarin Sodium 5 mg PO SUTUTHSA 12/21/16 [History] Warfarin [Coumadin] 2.5 mg PO MOWEFR 12/22/16 [History] Enoxaparin [Lovenox] 100 mg SQ Q12HCO 12/28/16 [Rx] Enoxaparin [Lovenox] 100 mg SQ Q12HR #9 syr 12/28/16 [Rx] levoFLOXacin [Levaquin] 500 mg PO DAILY #14 tab 12/28/16 [Rx] Allergies/Adverse Reactions: 3 Allergy/AdvReac Type Severity Reaction Status Date / Time Penicillins Allergy Hives Verified 12/21/16 22:04 Procedures and tests throughout hospitalization: Foot MRI 12/22/16 13:56 IMPRESSION: 1. Chronic bony changes at the 1st and 2nd ray as described above. No MR evidence of osteomyelitis. 2. Evidence of cellulitis at the 1st metatarsophalangeal joint, with ulceration along the plantar aspect of foot. No focal fluid collections are found. D/ / Shay Alston MD / Shay Alston MD Interpreting Provider: Shay Alston MD Temp Pulse Resp BP Pulse Ox 98.0 F 58 14 115/62 95 12/28/16 15:29 12/28/16 15:29 12/28/16 15:29 12/28/16 15:29 12/28/16 15:29 Labs on day of discharge: Labs from last 24 hours 12/28/16 12/28/16 12/28/16 04:15 04:15 04:15 WBC 8.4 RBC 3.68 L Hgb 10.4 L Hct 30.3 L MCV 82.3 L MCH 28.3 MCHC 34.3 RDW 13.2 Plt Count 194 MPV 11.8 PT 13.5 H INR 1.2 APTT 75.4 H Sodium 133 L Potassium 4.8 H Chloride 103 Carbon Dioxide 24 BUN 16 Creatinine 1.80 H Est GFR ( Amer) 46 L Est GFR (Non-Af Amer) 38 L BUN/Creatinine Ratio 9 Glucose 200 H POC Glucose Calculated Osmolality 283 Calcium 8.3 L Magnesium 2.2 12/27/16 12/27/16 12/27/16 20:03 16:15 11:02 WBC RBC Hgb Hct MCV MCH MCHC RDW Plt Count MPV PT INR APTT Sodium Potassium Chloride Carbon Dioxide BUN Creatinine Est GFR ( Amer) Est GFR (Non-Af Amer) BUN/Creatinine Ratio Glucose POC Glucose 178 H 105 H 151 H Calculated Osmolality Calcium Magnesium 12/27/16 07:06 WBC RBC Hgb Hct MCV MCH MCHC RDW Plt Count MPV PT INR APTT Sodium Potassium Chloride Carbon Dioxide BUN Creatinine Est GFR ( Amer) Est GFR (Non-Af Amer) BUN/Creatinine Ratio Glucose POC Glucose 229 H Calculated Osmolality Calcium Magnesium - Impressions ITS Impressions Foot MRI 12/22/16 13:56 IMPRESSION: 1. Chronic bony changes at the 1st and 2nd ray as described above. No MR evidence of osteomyelitis. 2. Evidence of cellulitis at the 1st metatarsophalangeal joint, with ulceration along the plantar aspect of foot. No focal fluid collections are found. D/ / Shay Alston MD / Shay Alston MD Interpreting Provider: Shay Alston MD Date of admission: 12/24/16 16:20 Primary care physician: Richard Driver MD Consults: 12/22/16 13:53 Consult to Hospitalist [CONS] Routine Consulting Provider: Hospitalist Timo Reason for Consult: Diabetes mellitus type 2 with multiple comorbidities Time Notified: 14:00 Call Completed: Yes 12/22/16 14:31 Consult to Infectious Diseases [CONS] Routine Consulting Provider: Infectious Disease [place] Reason for Consult: ID consult requested by Dr. Castro Time Notified: 14:32 Call Completed: Yes 12/22/16 16:06 Consult to Invasive Line Access Team [CONS] Routine Reason for Consult: line Line Type: EPIV 12/23/16 13:19 Consult to Natural Science Manager [CONS] Routine Reason for SW Consult: IV ATB WOUND VAC Discharging clinician: Blair Maguire Anticipated date of discharge: 12/28/16 - Patient Status Disposition: Home Health Service Condition: Fair Overall status at discharge: patient is progressing back to baseline - Discharge Instructions Follow Up With: Niels Castro DPM [Partnered Physician] - 01/06/17 10:15 am Richard Driver MD [Primary Care Provider] - Additional Instructions: Home Health to CHANGE DRESSING DAILY, cleanse incision line daily with mild soap and water, pat dry, apply betadine to incision line, with adaptic, 4x4 gauze and kerlix. TAKE ALL MEDS PRESCRIBED. Hold hydrochlorothiazide until seen by Primary Care Provider. Do not take Zanaflex while taking Levaquin. FOLLOW UP WITH COUMADIN CLINIC and notify that you are on Levquin. FOLLOW UP WITH PRIMARY DR this week. FOLLOW UP WITH DR. CASTRO IN THE WOUND CLINIC SCHEDULED IF FEVER, CHILLS, SHAKES, ODOR, CALL DR. CASTRO OFFICE. Home health care to change dressing daily. Protective weight bearing with cast boot. - Diet and Activity Activity: other (protective weight bearing) Diet: diabetic diet - Hospital Course Hospital course: Mr. Akbar is a 66 year old male admitted by Dr. Castro for a right foot ulcer and cellulitis on 12/22/2016. Patient has a medical history significant for hypertension, hyperlipidemia, hypothyroidism, chronic kidney disease stage III, diabetes mellitus, history of DVT and PE on Coumadin. Hospitalist service was consulted for medical management of comorbidities and infectious disease was consulted for antibiotic recommendations. Right foot wound culture isolated E. Coli, anaerobic culture isolated bacteroides fragilis. Blood cultures were negative. ESR was 41 and CRP was 155. Patient was started on IV vancomycin. X -ray of the right foot revealed a chronic deformity of the first and second ray with no evidence of osteomyelitis. MRI of the right foot revealed chronic bony changes at the first and second rays and evidence of cellulitis at the first MTPJ with ulceration along the plantar aspect of foot. No focal fluid collections. No evidence of osteomyelitis. Dr. Castro took patient to surgery on 12/24/2016 for an incision and drainage of multiple areas right foot with an application of a wound VAC. Vancomycin was discontinued on 12/25/2016 secondary to renal function. Patient completed 4 days of Cefepime 2 g IV every 12 hours. Hydrochlorothiazide was held during this admission. Patient's Coumadin was held the day of surgery and a heparin drip was initiated to bridge anticoagulation. Patient's condition improved and will be discharged home with home health care. Antibiotics were deescalated to oral Levaquin 500 mg by mouth daily for 14 days. Heparin drip was stopped and patient started on Lovenox injections and the patient will be sent home on Lovenox 100 mg twice a day subcutaneous for 5 days. Patient will follow up at Coumadin clinic on 12/31. Baseline creatinine was 2.2 and it was elevated at 2.79 on admission. Patient was given IV hydration and hydrochlorothiazide was held. Patient's creatinine was 1.80 this morning. Hydrochlorothiazide will be held upon discharge as patient's blood pressure is well-controlled. Patient instructed to not take Zanaflex while on Levaquin. Patient discharged with a diabetic cast boot to the right lower extremity. Home health care will provide daily dressing changes. - Time Spent with Patient Total time spent providing and/or coordinating discharge services:
[2016-12-28] MEDS ORDERED: levoFLOXacin 500 MG TABLET PO SCH (17:15)
[2016-12-28] MEDS ORDERED: *HR* Warfarin 5 MG TABLET PO ONE (18:00)
== END 2016-12-28 18:01 | disposition home health service (06) | DRG 623 ==
LOC: 3NENU
PROVIDERS: ADMIT Podiatrist Foot Surgery; ATTEND Podiatrist Foot Surgery